=== PATIENT | female | born 1985 | race Caucasian/White ===

== ENCOUNTER → 2017-07-29 16:38 | Outpatient (CLI) | payer BC, SELFPAY ==
[2017-07-29 17:53] LABS: Absolute Lymphocyte Count 1.83 X10^3/ul (0.83-4.51); Absolute Neutrophil Count 3.3 X10^3/uL (2.0-7.7); Basophil# 0.04 X10^3/uL; Basophil% 0.7 % (0-1); Eosinophils% 1.7 % (0-5); Hematocrit 39.6 % (37-47); Hemoglobin 13.5 g/dl (12.0-15.0); Lymphocyte # 1.83 X10^3/ul (4.0); Lymphocyte % 31.2 % (19-41); Mean Corp Hgb Conc 34.1 g/gl (32-36); Mean Corpuscular Hgb 30.3 pg (27.0-32.0); Mean Platelet Vol. 9.5 fl (6.2-12.0); Monocyte# 0.57 X10^3/uL; Monocyte% 9.7 % (0-10); Neutrophil # 3.31 X10^3/uL (2.7-7.7); Neutrophil % 56.4 % (47-70); Platelet Count 275 K/mm3 (150-450); RBC Distribution Width CV 13.3 % (11.6-14.6); RBC Distribution Width SD 42.7 fl (35.1-43.9); Red Blood Count 4.45 M/mm3 (4.2-5.4); White Blood Count 5.9 K/mm3 (4.4-11.0)
[2017-07-29 17:59] LABS: POSITIVE COUNT NO; POSITIVE DIFFERENTIAL NO; POSITIVE MORPHOLOGY NO
[2017-07-29 18:05] LABS: Erythrocyte Sedimentation Rate 45 mm/hr (0-20)
[2017-07-29 20:34] LABS: Internal QC Validated? YES +Cl - CLEAR BKGD; Monotest Negative (Negative)
== END ==
PROVIDERS: Family Provider Family Medicine; PCP Family Medicine; Visit Provider Family Medicine
DX: J02.9 Acute pharyngitis, unspecified (principal)
CPT/HCPCS: 36415; 85025; 85652; 86308

== ENCOUNTER 2017-07-30 11:59 | Emergency (ER) | payer BC, SELFPAY ==
[2017-07-30 12:00] VITALS: BP 157/100; PULSE 116; RESP 17; TEMP 36.7; O2SAT 95; BMI 58.1
[2017-07-30] MEDS: 0.9% Normal Saline 1,000 ML 1000 ML IV (12:34)
[2017-07-30] MEDS: Ketorolac 30 MG/ML Syringe IV (12:35)
[2017-07-30 12:38] LABS: Absolute Lymphocyte Count 1.67 X10^3/ul (0.83-4.51); Absolute Neutrophil Count 4.7 X10^3/uL (2.0-7.7); Basophil# 0.05 X10^3/uL; Basophil% 0.7 % (0-1); Eosinophil# 0.08 X10^3/uL; Eosinophils% 1.2 % (0-5); Hematocrit 40.8 % (37-47); Lymphocyte # 1.67 X10^3/ul (4.0); Lymphocyte % 24.3 % (19-41); Mean Corp Hgb Conc 34.3 g/gl (32-36); Mean Corpuscular Hgb 30.4 pg (27.0-32.0); Mean Corpuscular Volume 88.7 fL (81-99); Monocyte# 0.33 X10^3/uL; Monocyte% 4.8 % (0-10); Neutrophil # 4.73 X10^3/uL (2.7-7.7); Neutrophil % 68.7 % (47-70); Platelet Count 273 K/mm3 (150-450); RBC Distribution Width CV 13.2 % (11.6-14.6); RBC Distribution Width SD 41.7 fl (35.1-43.9); White Blood Count 6.9 K/mm3 (4.4-11.0)
[2017-07-30 12:39] LABS: POSITIVE COUNT NO; POSITIVE DIFFERENTIAL NO; POSITIVE MORPHOLOGY NO
[2017-07-30 12:49] LABS: Anion Gap 11 (5-15); BUN 8 mg/dL (7-18); BUN/Creat Ratio 10.2 RATIO (10-20); Calcium,Total 8.8 mg/dL (8.5-10.1); Chloride 108 mmol/L (98-107); Creatinine, Serum 0.78 mg/dL (0.55-1.02); EST Glomerular Filtration Rate 92 mL/min (>60); Est Glom Filt Rate - Afr Amer 111 mL/min (>60); Estimated Creatinine Clearance 88.03 ml/min; Glucose 128 mg/dL (70-110); Potassium 3.6 mmol/L (3.5-5.1); Sodium Level 141 mmol/L (136-145)
--- NOTE | 2017-07-30 13:32 | ED.VISSUMM ---
- ER Visit Summary Date of Service: 07/30/17 Chief Complaint: [Sore throat and rash] History of Present Illness: The patient is a 31 F [presents the emergency department chief complaint sore throat ?3 days. Patient was initially seen by Dr. Ryan Damon in the office 3 days ago and had a negative strep screen but was started on amoxicillin. Patient subsequently developed a rash she was then seen by Dr. Betancourt in the office yesterday who did some blood work and check a Monospot which was negative and her blood work apparently looked normal however she was continued on the antibiotic.] Patient continues to complain of a sore throat and a burning itchy rash that is diffuse. Patient denies inability to swallow her own secretions. She denies any shortness of breath. She denies any fever. Physical Examination: [HEENT-PERRLA, EOMI. Cranial nerves II through XII grossly intact. TMs clear. Mucous membranes moist. No adenopathy. Patient has pharyngeal erythema without exudates. Uvula in the midline without trismus. Patient does have some anterior and posterior cervical lymphadenopathy noted. Cardiovascular-regular rate and rhythm without murmur or ectopy Lungs-clear to auscultation, chest wall stable without crepitus or subcu emphysema Abdomen-normoactive bowel sounds, soft, nontender, no rebound or rigidity, no peritoneal signs. Skin exam-patient has a diffuse erythematous rash that blanches. Rash looks typical for a drug eruption rash. Extremities-intact ?4, normal range of motion, normal pulses, atraumatic] Test Results: CBC with differential obtained was normal. Chemistries were normal.] Throat culture was sent. Emergency Department Course and Treatment: [Patient was given a liter normal same fluid bolus as well as Toradol 30 mg IV and Decadron 10 mg IV.] Treatment Plan: [At this point I suspect a viral pharyngitis with drug eruption rash related to the amoxicillin. I recommended discontinuing the amoxicillin. Patient will be given a prescription for prednisone for 3 days. Patient to follow-up with her primary care physician within next 3-5 days to follow-up on culture results from the throat. I suspect mono was still in the differential and patient understands that the Monospot may not turn positive for several weeks.] Disposition: [Discharged to home in stable condition] Impression: [Viral pharyngitis Drug eruption rash] This note was generated with [employer] dictation software. It may contain incorrect words, spelling, and punctuation that were not noted in review of the chart prior to signing ED Disposition - Plan for ED Patient: Chief Complaint: Rash Referrals: Inessa Betancourt MD [Primary Care Provider] -
--- NOTE | 2017-07-30 13:36 | ED.DEP ---
ED Disposition - Plan for ED Patient: Chief Complaint: Rash Instructions: ED Pharyngitis Viral Report Pending, ED Allergic Reaction Drug Ch Prescriptions: Prednisone [Deltasone] 20 mg PO BID #6 tab Referrals: Inessa Betancourt MD [Primary Care Provider] - 3-5 Days
[2017-07-30 13:46] VITALS: BP 148/97; PULSE 100; RESP 16; O2SAT 98
== END 2017-07-30 13:47 | disposition home or self-care (01) ==
LOC: ED 12:23
PROVIDERS: Emergency Provider Emergency Medicine; Family Provider Family Medicine; PCP Family Medicine
DX: J02.9 Acute pharyngitis, unspecified (principal); L27.1 Localized skin eruption due to drugs and medicaments taken internally; T36.0X5A Adverse effect of penicillins, initial encounter; Y92.009 Unspecified place in unspecified non-institutional (private) residence as the place of occurrence of the external cause
CPT/HCPCS: 80048; 85025; 87070; 96361; 96374; 96375; 99283; J7030; A4216

== ENCOUNTER → 2017-08-02 12:31 | Outpatient (CLI) | payer BC, SELFPAY ==
--- NOTE | 2017-08-02 13:00 | MRI_ITS ---
STUDY: MRI LEFT REARFOOT WITHOUT CONTRAST REASON FOR EXAM: Pain, swelling, fallen arch, symptoms for 5 years. TECHNIQUE: Standardized fat and water weighted pulse sequences were obtained in all 3 orthogonal planes. COMPARISON: MRI images 05/13/2015. FINDINGS: There is mild edema in the subcutis adipose space of the distal lower leg. Normal posterior tibialis tendon. Normal flexor digitorum longus tendon. Normal flexor hallucis longus tendon. Normal peroneus longus and brevis tendons. Normal tibialis anterior tendon. Normal extensor hallucis longus tendon. Normal extensor digitorum longus tendons. Normal Achilles tendon and teno-osseous insertion. Normal plantar fascia. Normal plantar calcaneal tubercles. There is mild atrophy with mild partial fat replacement of the abductor digiti minimi muscle (T1 sagittal image 17). Normal distal tibiofibular syndesmotic ligamentous complex. There is a mild chronic sprain of the anterior talofibular ligament (T2 axial image 20). Normal calcaneofibular and posterior talofibular ligaments. There is fat replacement of the sinus tarsi (T1 sagittal images 15-18) as on the prior study suggestive of sinus tarsi syndrome. There is cystic change of the adjacent talus and cystic change/bone edema of the adjacent calcaneus, increased since the prior study. Normal deltoid ligamentous complexes. Normal plantar calcaneonavicular (spring) ligament. Normal tibiotalar articulation. Normal talar dome. There is mild arthrosis of the posterior subtalar articulation with mild chondral thinning/irregularity (inversion recovery sagittal images 12-14) and a small subchondral cyst in the posterior aspect of the talus. There is arthrosis of the talonavicular articulation with small dorsal osteophytes and chondral thinning (T1 sagittal image 14) as on the prior study. Normal calcaneocuboid articulation. Normal navicular-cuneiform articulations. There is an os trigonum with mild bone edema adjacent to the synchondrosis (inversion recovery sagittal image 15) as on the prior study. 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 Mild chronic sprain of the anterior talofibular ligament. Mild atrophy of the abductor digiti minimi muscle. Os trigonum with mild bone edema adjacent to the synchondrosis. Electronically Signed: Rey Christine MD at 10:05 EST Tel , Service support ,
== END ==
PROVIDERS: Family Provider Family Medicine; PCP Family Medicine; Visit Provider Podiatrist
DX: M19.072 Primary osteoarthritis, left ankle and foot (principal)
CPT/HCPCS: 73721

== ENCOUNTER → 2017-08-30 10:49 | Outpatient (CLI) | payer BC, SELFPAY ==
[2017-08-30 12:50] LABS: Absolute Lymphocyte Count 2.11 X10^3/ul (0.83-4.51); Absolute Neutrophil Count 4.9 X10^3/uL (2.0-7.7); Basophil# 0.04 X10^3/uL; Basophil% 0.5 % (0-1); Eosinophil# 0.27 X10^3/uL; Eosinophils% 3.4 % (0-5); Hematocrit 37.3 % (37-47); Hemoglobin 12.8 g/dl (12.0-15.0); Lymphocyte # 2.11 X10^3/ul (4.0); Lymphocyte % 26.8 % (19-41); Mean Corp Hgb Conc 34.3 g/gl (32-36); Mean Corpuscular Hgb 30.6 pg (27.0-32.0); Mean Corpuscular Volume 89.2 fL (81-99); Mean Platelet Vol. 9.2 fl (6.2-12.0); Monocyte% 6.4 % (0-10); Neutrophil % 62.3 % (47-70); Platelet Count 297 K/mm3 (150-450); RBC Distribution Width CV 13.4 % (11.6-14.6); RBC Distribution Width SD 42.8 fl (35.1-43.9); Red Blood Count 4.18 M/mm3 (4.2-5.4); White Blood Count 7.9 K/mm3 (4.4-11.0)
[2017-08-30 13:01] LABS: POSITIVE COUNT NO; POSITIVE DIFFERENTIAL NO; POSITIVE MORPHOLOGY NO
[2017-08-30 13:15] LABS: ALB/GLOB Ratio 0.7 RATIO (0.9-2.4); AST(SGOT) 17 U/L (15-37); Alanine Aminotransfer ALT/SGPT 30 U/L (13-56); Alkaline Phosphatase 137 U/L (45-117); Anion Gap 9 (5-15); BUN 9 mg/dL (7-18); BUN/Creat Ratio 13.8 RATIO (10-20); Calcium,Total 8.6 mg/dL (8.5-10.1); Chloride 106 mmol/L (98-107); Creatinine, Serum 0.65 mg/dL (0.55-1.02); EST Glomerular Filtration Rate 114 mL/min (>60); Est Glom Filt Rate - Afr Amer 138 mL/min (>60); Globulin 4.3 g/dL (2.2-4.2); Glucose 72 mg/dL (74-106); Potassium 3.3 mmol/L (3.5-5.1); Protein, Total 7.3 g/dL (6.4-8.2); Sodium Level 140 mmol/L (136-145)
== END ==
PROVIDERS: Family Provider Family Medicine; PCP Family Medicine; Visit Provider Family Medicine
DX: Z01.818 Encounter for other preprocedural examination (principal)
CPT/HCPCS: 36415; 80053; 85025

== ENCOUNTER 2017-09-06 08:18 | Observation (INO) | payer BC, SELFPAY ==
[2017-09-05] VITALS (11 sets, daily range): BP systolic 140–156; BP diastolic 86–111; PULSE 89–111; RESP 16–20; TEMP 35.8–36.6; O2SAT 92–100; BMI 57.9; BMI 58.8
[2017-09-05 11:53] LABS: Internal QC Validated? YES +Cl - CLEAR BKGD
[2017-09-05 11:54] LABS: Pregnancy, Urine Negative Negative
--- NOTE | 2017-09-05 13:00 | RAD_ITS ---
STUDY: X-RAY - LEFT FOOT CLINICAL: Female, 31 years old. Left subtalar joint arthrodesis. TECHNIQUE: 12 coned-down view(s) of the foot were obtained intraoperatively. COMPARISON: None. FINDINGS: Intraoperative imaging demonstrates arthrodesis of the subtalar joints as well as the talonavicular and first metatarsal cuneiform joint. RAD/Foot min 3 Views IMPRESSION: Intraoperative imaging provided for arthrodesis of the foot as described. Electronically Signed: Osmany Uriostegui MD at 15:51 EST Tel [phone], Service support ,
--- NOTE | 2017-09-05 13:00 | BON_PTH ---
PATIENT: GIL DEGROOT LOC: MS2 U#:[id number] AGE/SX: 31/F [place] [facility] [place]09/06/[address]: Dr. Harvinder Monroy DPM : 1985 BED: 1 DIS: 09/08/2017 SPEC #: [id number] RECD: 09/06/17 08:38 STATUS: BETHANY RUPERT #: [id number] ARABELLA: 09/05/17 13:[address]: Harvinder Monroy DEPT: SURGICAL PATHOLOGY RECD BY: Timo Glez ENTERED: 09/06/17 11:32 SP TYPE: Bone OTHR DR: Dr. Inessa Betancourt MD Tissues: Left foot Procedures: Decalcification bone/plaque Surgery Specimen Level IV HEADER OPERATION: Subtalar joint arthrodesis, talonavicular joint arthrodesis PRE-OP DIAGNOSIS: Left foot osteoarthritis, flatfoot TISSUE SUBMITTED: Left foot ? accessory bone, subtalar joint, talonavicular joint, first metatarsal cuneiform joint MICROSCOPIC DIAGNOSIS Accessory bone, left foot, excision: Bone with reactive and reparative change. Cartilaginous tissue with no significant pathologic change. Fibrofatty tissue with no pathologic change. MERRILL:floyd 09/09/17 COMMENT There is no evidence of osteomyelitis. Clinical correlation is suggested. MICROSCOPIC DESCRIPTION Slides are reviewed. GROSS DESCRIPTION Received in fixative is one container labeled with the patient's name and designated accessory bone, subtalar joint, talonavicular joint, first metatarsal cuneiform joint. The specimen consists of multiple pieces of bone mixed with soft tissue that in aggregate measure 3 x 1.5 x 0.3 cm. The entire specimen is submitted in one cassette after decalcification. / COLLEEN:floyd 09/06/17 TC:5 CPT: 70494, 21821
[2017-09-05] MEDS: Cefazolin 2 GM in 0.9% Normal Saline 100 ML IV (13:52)
[2017-09-05] MEDS: Heparin 10,000 UNITS/10 ML Vial 10000 UNITS (13:52)
[2017-09-05] MEDS: Bupivacaine Mpf 0.5% 30 ML VIAL (18:52)
--- NOTE | 2017-09-05 19:35 | RAD_ITS ---
STUDY: X-RAY - LEFT ANKLE REASON FOR EXAM: Female, 31 years old. TECHNIQUE: 3 view(s) of the ankle. COMPARISON: None. FINDINGS: There is demonstrated cancellous screws within the talonavicular and first metatarsal cuneiform region showing arthrodesis. No evidence of hardware failure. Cortical screws within the calcaneus are noted with normal alignment. No evidence of large fluid collection. Normal visualized distal tibia and fibula. Normal medial and lateral malleoli. Normal tibiotalar articulation and ankle mortise. The soft tissue structures are unremarkable. RAD/Ankle min 3 Views IMPRESSION: Demonstrated hardware with no evidence of hardware failure with tibial navicular, subtalar, and first metatarsal cuneiform coalition. Electronically Signed: Michael Martínez DO at 22:10 EST , Service support ,
--- NOTE | 2017-09-05 19:38 | RAD_ITS ---
STUDY: X-RAY - LEFT CALCANEUS REASON FOR EXAM: Female, 31 years old. Postop left tibial navicular arthrodesis, subtalar arthrodesis and first metatarsal cuneiform arthrodesis. TECHNIQUE: 2 view(s) of the calcaneus were obtained. COMPARISON: None. FINDINGS: There is demonstrated cancellous screws within the talonavicular and first metatarsal cuneiform region showing arthrodesis. No evidence of hardware failure. Cortical screws within the calcaneus are noted with normal alignment. No evidence of large fluid collection. RAD/Calcaneus min 2 Views IMPRESSION: Demonstrated hardware with no evidence of hardware failure with tibial navicular, subtalar, and first metatarsal cuneiform coalition. Electronically Signed: Michael Martínez DO at 22:02 EST , Service support ,
--- NOTE | 2017-09-05 19:38 | RAD_ITS ---
STUDY: X-RAY - LEFT FOOT CLINICAL: Female, 31 years old. Postop. TECHNIQUE: 3 view(s) of the foot. COMPARISON: None. FINDINGS: There is demonstrated cancellous screws within the talonavicular and first metatarsal cuneiform region showing arthrodesis. No evidence of hardware failure. Cortical screws within the calcaneus are noted with normal alignment. No evidence of large fluid collection. Normal metatarsophalangeal joint of the great toe. Normal tibial and fibular sesamoid bones. Normal interphalangeal joint of the great toe. Normal phalanges of the great toe. Normal second through fifth metatarsophalangeal joints. Normal interphalangeal joints and phalanges of the lesser toes. The soft tissue structures are unremarkable. RAD/Foot min 3 Views IMPRESSION: Demonstrated hardware with no evidence of hardware failure with tibial navicular, subtalar, and first metatarsal cuneiform coalition. Electronically Signed: Michael Martínez DO at 22:03 EST , Service support ,
--- NOTE | 2017-09-05 20:05 | PCM.OPRPT ---
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 Description of Surgical Findings:: Degenerative changes of the subtalar joint and talonavicular joint, left foot network and threat support specialist: Yes - Dr. Blanca Roman Type of Anesthesia:: General Anesthesiologist: Gurdeep Schultz Specimen's removed: Bone from left subtalar joint, talonavicular joint, 1st metatarsal cuneiform joint and excised os trigonum all sent to patholgy. Estimated Blood Loss (mL): 100mL Description of Procedure: Indications: This is a 31 year old female with history of significant chronic left foot pain secondary significant flatfoot deformity with dorsiflexed 1st ray, degenerative changes of the subtalar and talonavicular joints, as well as gastrocsoleus equinus and painful os trigonum. She has tried extensive nonsurgical care over the past several years, this has included changes in shoegear, activity modifications, rest, anti-inflammatories, corticosteroid injections, foot orthotics, AFO bracing, and immobilization but symptoms persist and are resulting in significant inactivity. She relates to significant foot pain every day, very painful at work, and and hard to get through the day. She relates it is so painful, she does not want to put weight on the foot, she relates it worsens throughout the day, and by the end of the day she does not want to even get up her foot is so painful. She relates the symptoms are worsening. Pre operative examination, which included foot/ankle/calcaneal axial xrays, as well as MRI showed degenerative changes of the subtalar joint and talonavicular joint. There was noted to be significant pes planus, decreased medial longitudinal arch, over pronation of the hindfoot all consistent with dysfunction of the posterior tibial tendon. However the posterior tibial tendon did appear to be intact without significant tearing or degenerative changes on MRI. She also had a rigid dorsiflexed 1st ray present. as well as gastrocsoleus equinus pre operatively. She had pain localized to the hindfoot, specially to the subtalar joint, sinus tarsi, and talonavicular joints. There was also noted to be a large painful os trigonum present. Given the continued symptoms despite extensive nonsurgical management she elected to under go surgical intervention - subtalar, talonavicular, and 1st metatarsal cuneiform joint (plantarflexory) arthrodesis with bone grafting (allograft), gastrocsoleus recession, and excision of os trigonum. This was discussed with her in great detail, reviewed the procedures, as well as the rationale of the procedures with her in great detail. We discussed and reviewed the possible benefits vs risks/potential complications. The estimated healing/recovery time and protocol were reviewed with her in detail. Reviewed the goals and the expectations. She expressed understanding and agreement and elected to proceed forward with surgical intervention as noted above. The consent forms were reviewed with her and she freely signed them. All of her questions were answered. No guarantees were given or implied. Operative Procedure: The patient was brought back into the operating room and was placed on the operating table in the supine position. Patient was carefully secured to the operating room table with a safety belt around her waist. A time out was performed and the patient was properly identified and the surgical plan was confirmed. The patient received 2 grams of intervenous Cefazolin for antibiotic prophylaxis. The patient received general anesthesia per the anesthesiologist. A well padded pneumatic tourniquet was applied around her left thigh. The left lower extremity was scrubbed, prepped, and draped in the usual aseptic fashion. Attention was directed to the left foot, there was noted to be significant pes planus present with gastrocsoleus equinus present. There is 0 degrees dorsiflexion with knee extended and less than 10 degrees with knee flexed. A Jamshidi needle was placed through the lateral wall of the calcaneus being use to avoid all vital structures to the area. 45mL of bone marrow aspirate was able to be obtained, this was spun down to 4mL of concentrated bone marrow aspirate to be placed later at the arthrodesis sites to aid fusion. The left foot was elevated for 3 minutes and the left thigh pneumatic tourniquet was inflated to 325mmHg. Attention was directed just distal to the medial head of the gastrocnemius muscle belly on the posterior leg. A 1cm linear skin incision was made using a 15 blade at this level at the medial aspect. Careful dissection was completed down to the gastrocsoleus aponeurosis. A fascial elevator was used and a plane was made between the subcutaneous tissue and the posterior aspect of the gastrocsoleus aponeurosis. A 1cm linear skin incision was made using a 15 blade at the lateral aspect of the leg to create the lateral portal. The fascial elevator was removed, and an obturator and slotted cannula were placed through the medial and lateral portals. The obturator was removed and the slotted cannula was faced posteriorly; the sural nerve and the small saphenous vein was visualized confirming they were out of the way. The slotted cannula was rotated to face anteriorly and the gastrocsoleus aponeurosis was visualized. Using a hook blade the gastrocsoleus aponeurosis was released. There was now noted to be +10 degrees of ankle dorsiflexion with knee flexed and extended. The obturator was placed in the cannula, and they were both removed. The site was flushed out with copious amounts of normal saline solution. The skin was reapproximated using 3-0 nylon. Attention was directed to the lateral hindfoot were an incision was made from the distal fibular directed toward the 4th metatarsal base. This was done using a 15 blade. Careful dissection was completed down to the extensor digitorum brevis muscle belly, and it was visualized. The extensor digitorum muscle belly was partially reflected to expose to the sinus tarsi. Careful dissection was completed to the posterior subtalar joint, where the lateral capsule and the interosseous ligaments were released. The subtalar joint surfaces were visualized. There were noted to be osteoarthritis degenerative changes present to the subtalar joint surfaces. The cartilage was worn away. The cartilage from the subtalar joint surfaces was debrided and removed down to bleeding bone. This was done with a curette and a bone bur being sure not to cause osteonecrosis. The site was flushed out with copious amounts of normal saline solution. The surfaces were fenestrated using a small drill, as well as using a small osteotome, to aid fusion. Attention was directed to the medial hindfoot foot, where a skin incision was medially along the medial talonavicular joint and posterior tibial tendon. This was done using a 15 blade. Careful dissection was completed down to the posterior tibial tendon sheath which was incised, the posterior tibial tendon was visualized and was noted to be healthy and viable. The tendon was intact, healthy and viable, with no significant tear or degeneration present, therefore it was left alone, no repair was necessary. The capsule of the talonavicular joint was incised using a 15 blade and partially reflected exposing the talonavicular joint surfaces. The joint was visualized, there were osteoarthritis degenerative changes present to the talonavicular joint surfaces. The cartilage was worn away. All cartilage from the talar head and posterior navicular surface debrided away and was removed down to bleeding bone. This was done with a curette and a bone spur being sure not to cause osteonecrosis. The site was flushed out with copious amounts of normal saline solution. The surfaces were fenestrated using a small drill, as well as using a small osteotome, to aid fusion. Attention was directed to the posterior lateral aspect of the ankle, posterior to the os trigonum, and lateral to the Achilles tendon. At this level, a longitudinal skin incision was made using a 15 blade. Careful dissection was completed down to the os trigonum. The os trigonum was visualized, and it was freed up. The os trigonum was excised, and was sent to pathology. Complete excision was confirmed using intra operative fluoroscopy. The site was flushed out with copious amounts of normal saline solution. The subcutaneous tissue layer was re-approximated using 3-0 Vicryl, and the skin was reapproximated using 3-0 Nylon. Attention was directed to the 1st ray, there was a rigid dorsiflexion deformity present of the 1st ray. A skin incision was medially along the medial 1st metatarsal cuneiform joint. This was done using a 15 blade. Careful dissection was completed down to the capsule of the 1st metatarsal cuneiform joint, and it was incised using a 15 blade and partially reflected exposing the joint surfaces. All cartilage from the joint surfaces (posterior aspect of the base of the 1st metatarsal and the anterior aspect of the medial cuneiform) were debrided away and was removed down to bleeding bone. This was done with a powered sagittal saw, curette, and a bone spur being sure not to cause osteonecrosis. The site was flushed out with copious amounts of normal saline solution. The surfaces were fenestrated to aid fusion using a small drill, as well as a small osteotome. The 1st metatarsal head was plantarflexed into normal position, and a tricortical iliac bone allograft was shaped and modeled into a wedge and placed into the fusion site (base of the cortex wedge dorsal, and apex plantar) to hold the correction. The wedge fit nicely into the arthrodesis site with good bone to bone contact and reduction of the deformity was noted. The site was fixated use rigid open reduction internal fixation, using 1 Arthrex plantar plate, using a total of 2 locking screws, 3 nonlocking screws - once of which was providing compression across the graft and arthrodesis site. The subtalar and talonavicular joints were placed in neutral position position; reducing the deformity, the heel was now in slight valgus to vertical position. The subtalar and talonavicular joint arthrodesis sites were fixated using rigid open reduction internal fixation technique. The prepped surfaces were brought together with good and proper alignment; the talonavicular joint arthrodesis site was fixated using two 4.0 cancellated Arthrex screws. There was good compression and bone to bone contract with the prepped talonavicular joint surfaces in good alignment and good bone to bone contact and compression. Two 6.7mm cannulated Arthrex screws were placed across the prepped subtalar joint starting from the plantar posterior calcaneus. A small skin incision was made to the posterior plantar calcaneus for screw placement with careful dissection completed down to the bone. There was good compression and bone to bone contract with the prepped subtalar joint surfaces in good alignment. The subtalar joint was rigid and stable. The arthrodesis sites were rigid and stable. There was good compression and bone to bone contract and there was good alignment. This was checked and confirmed with intraoperative fluoroscopy. Images were saved and placed in patient's chart. The hindfoot and medial column were stable and in good position with good fixation, the foot was plantigrade and there was oriental orthodox of the medical longitudinal arch with good re-alignment of the foot noted, there was good bone to bone contract and all hardware in place with no complications. The ankle was dorsiflexed and it was noted to be +10 degrees of ankle dorsiflexion with knee extended, and > 10 degrees with knee flexed. The surgical sites were flushed out with copious amounts of normal saline solution. The arthrodesis sites (talonavicular, subtalar, and 1st metatarsal cuneiform) were also packed with a total of 10mL of Arthrex bone allograft mixed with the bone marrow concentrate to aid fusion prior to closure. The subcutaneous tissue layers were reapproximated using 2-0 and 3-0 Vicryl and the skin was reapproximated using 3-0 Nylon. The pneumatic tourniquet was deflated at 120 minutes within in operative procedure, there was immediate return of warmth and perfusion to the foot and to all toes on the foot with normal temperature gradient and CFT < 2 seconds to all toes once the tourniquet was deflated, and remained this way for the rest of the case. Hemostasis was achieved proper to wound closure of the surgical sites. A dressing was applied which consisted of betadine soaked adaptic, 4x4 gauze, kerlix, webril, and simran bandage and a well padded below the knee posterior splint secured with simran bandages and with the heel offloaded. Of note, all vital structures including all vital neurovascular and tendon structures were properly identified, protected, and retracted as necessary throughout the above operative procedures. The patient tolerated the above operative procedures well at the anesthesia well with no complication. The patient was transported from the operating room to the recovery room with vital signs stable and in good condition. Post operative orders were placed, and patient will be admitted for post op pain control and observation, I did speak with Dr. Murphy from the medicine team, who agreed with the admission. No weightbearing left foot, keep left foot elevated for at least 50 minutes of every hour, keep dressing and splint clean, dry and intact. The patient was given a lower extremity popliteal and saphenous block per anesthesia service in the post operative recovery area. Post operative xrays were obtained in the recovery room (DP, Oblique, and lateral foot; AP, Mortise, and Lateral ankle, and calcaneal axial views) - there was again noted to be subtalar, talonavicular and 1st metatarsal cuneiform arthrodesis with joint surfaces in good alignment and good bone to bone contract with intact hardware; bone graft intact at the 1st metatarsal cuneiform arthrodesis site, alignment was good, oriental orthodox of the medial column and good re-alignment of the foot noted, os trigonum has been excised; no acute problems or complications seen. Grafts/Implants Used: Arthrex screws, Arthrex plantar plate, bone allograft - Complications None - Admit VTE Documentation VTE Pharm Prophylaxis ordered?: Yes
--- NOTE | 2017-09-05 21:39 | PCM.HP.STD ---
Problem List (1) History of foot surgery Status: Acute History of Present Illness Date of Admission: 09/05/17 Chief Complaint: left foot surgery The patient is a 31 year old female with a history of morbid obesity presents to the floor post operatively. She had surgery for her flat foot condition that has plagued her for a long time. She has exhausted conservative therapies and has been inactive as a result of her foot pain. The patient has a 16month old daughter and is motivated to be more active with her. No chest pain or shortness of breath. Pain currently 8/10 status post nerve block. She will be admitted overnight for observation and pain management. Past Medical History Allergies No Known Allergies Allergy (Verified 08/30/17 15:28) Home Medications: Ambulatory Orders Medication Instructions Recorded Ethinyl Estradiol/Drospirenone 1 each PO DAILY 07/30/17 [Kasey 28 Tablet] Smoking Status: Never smoker - *Family History Maternal History Items: No pertinent history Review of Systems Constitutional: Denies: Chills, Fever, Weight Change HEENT: Denies: Head Aches, Sinus Congestion, Sinus Drainage Cardiovascular: Denies: Chest Pain, Palpitations Respiratory: Denies: Cough, Shortness of breath at rest, Sputum production Gastrointestinal: Denies: Abdominal Pain, Nausea, Vomiting Genitourinary: Denies: Dysuria Musculoskeletal: Reports: Foot Pain. Denies: Joint Pain, Joint Tenderness Skin: Denies: Rash, Wounds Neurological: Denies: Numbness, Tingling, Focal weakness Psychiatric: Denies: Anxiety, Depression, Homicidal Ideations, Suicidal Ideations Hematologic/ Lymphatic: Denies: Easy Bruising, Easy Bleeding VTE Information - Inpt Only VTE Present on Admission: No VTE Mechan Device Prophylaxis: None VTE Pharm Prophylaxis ordered?: Yes Patient Problems: Active and Suspected Problems History of foot surgery (Acute) - Physical Exam General: Alert, Oriented x3, Cooperative HEENT: Atraumatic, Normocephalic Neck: Supple Lungs: Clear to auscultation, Normal air movement Cardiovascular: Regular rate, No murmurs Abdomen: Bowel Sounds Present, Soft, Non Tender, Obese Extremities: Tenderness - left extremity wrapped post op Skin: No rashes, No breakdown Musculoskeletal: No Tenderness to Palpation of Joints or Extremities Neurological: Neuro grossly intact Psych/Mental Status: Normal Affect, Appropriate Vital Signs Temp Pulse Resp BP Pulse Ox 97.7 F L 97 18 140/86 H 98 09/05/17 21:07 09/05/17 21:07 09/05/17 21:07 09/05/17 21:07 09/05/17 21:07 Oxygen Flow Rate (L/min) 2 Oxygen Delivery Method Nasal Cannula Weight: 332 lb Body Mass Index (BMI) 58.8 Intake and Output for Last 24 Hours 09/03/17 09/04/17 09/05/17 23:59 23:59 23:59 Intake Total 3100 / 3100 Balance 3100 / 3100 Laboratory Tests Past 24 Hrs 09/05/17 11:45 Urine Test Negative Assessment/Plan Active and Suspected Problems History of foot surgery (Acute) Plan - admit to general medical floor - pain medications including prn Dilaudid ordered. - plan dc in am - Dr Monroy to follow
[2017-09-05] MEDS: HYDROmorphone 1 MG/ML Syringe IV (21:57)
[2017-09-05] MEDS: Cefazolin 1 GM/50 ML BAG IV (21:57)
[2017-09-05] MEDS: oxyCODONE 5 MG Tablet 10 MG PO (23:27)
--- NOTE | 2017-09-05 23:39 | CPS ---
pt has own cpap machine in room-distilled water added.
[2017-09-06 01:15] VITALS: BP 158/101; PULSE 104; RESP 16; TEMP 36.6; O2SAT 95
[2017-09-06] MEDS: 0.9% NaCl Peripheral Flush Adult/Peds IV ×2 (02:13→20:54)
[2017-09-06] MEDS: HYDROmorphone 1 MG/ML Syringe IV ×7 (02:13→20:23)
[2017-09-06 06:00] LABS: Absolute Lymphocyte Count 1.45 X10^3/ul (0.83-4.51); Absolute Neutrophil Count 8.6 X10^3/uL (2.0-7.7); Basophil# 0.01 X10^3/uL; Basophil% 0.1 % (0-1); Hematocrit 34.4 % (37-47); Hemoglobin 11.6 g/dl (12.0-15.0); Lymphocyte # 1.45 X10^3/ul (4.0); Lymphocyte % 13.6 % (19-41); Mean Corp Hgb Conc 33.7 g/gl (32-36); Mean Corpuscular Hgb 30.5 pg (27.0-32.0); Mean Corpuscular Volume 90.5 fL (81-99); Mean Platelet Vol. 9.2 fl (6.2-12.0); Monocyte% 4.7 % (0-10); Neutrophil # 8.63 X10^3/uL (2.7-7.7); Neutrophil % 81.2 % (47-70); Platelet Count 326 K/mm3 (150-450); RBC Distribution Width CV 13.6 % (11.6-14.6); RBC Distribution Width SD 43.8 fl (35.1-43.9); White Blood Count 10.6 K/mm3 (4.4-11.0)
[2017-09-06 06:07] LABS: POSITIVE COUNT NO; POSITIVE DIFFERENTIAL NO; POSITIVE MORPHOLOGY NO
[2017-09-06 06:11] LABS: Anion Gap 10 (5-15); BUN 7 mg/dL (7-18); BUN/Creat Ratio 9.3 RATIO (10-20); Calcium,Total 8.5 mg/dL (8.5-10.1); Chloride 105 mmol/L (98-107); Creatinine, Serum 0.76 mg/dL (0.55-1.02); EST Glomerular Filtration Rate 96 mL/min (>60); Est Glom Filt Rate - Afr Amer 116 mL/min (>60); Estimated Creatinine Clearance 90.35 ml/min; Glucose 138 mg/dL (74-106); Potassium 4.1 mmol/L (3.5-5.1); Sodium Level 140 mmol/L (136-145)
[2017-09-06 06:13] VITALS: BP 119/70; PULSE 90; RESP 18; TEMP 36.8; O2SAT 97
[2017-09-06] MEDS: Enoxaparin 40 MG/0.4 ML Syringe SC (06:16)
[2017-09-06] MEDS: Cefazolin 1 GM/50 ML BAG IV ×2 (06:16→12:40)
--- NOTE | 2017-09-06 07:51 | PCM.PN.HOSP ---
Patient Problems: Active and Suspected Problems History of foot surgery (Acute) Subjective: Follow-up on post left ankle surgery. Patient seen and examined. No acute events overnight. Reviewed vitals- stable, no fever or tachycardia. Labs reviewed- stable. Vitals/I&O's: Vital Signs Temp Pulse Resp BP Pulse Ox 98.3 F 90 18 119/70 97 09/06/17 06:13 09/06/17 06:13 09/06/17 06:13 09/06/17 06:13 09/06/17 06:13 Oxygen Flow Rate (L/min) 2 Oxygen Delivery Method Room Air Weight: 150.593 kg Body Mass Index (BMI) 58.8 Intake and Output for Last 24 Hours 09/04/17 09/05/17 09/06/17 23:59 23:59 23:59 Intake Total 3377 / 3377 385 / 385 Output Total 325 / 325 825 / 825 Balance 3052 / 3052 -440 / -440 General: Alert, Oriented x3, Cooperative HEENT: Atraumatic, PERRLA, EOMI, Normocephalic Neck: Supple, No JVD, Negative Carotid Bruits Lungs: Clear to auscultation, Normal air movement Cardiovascular: Regular rate, No murmurs Abdomen: Bowel Sounds Present, Soft, Non Tender Extremities: No edema, Capillary Refill Less than 3 Seconds Skin: No rashes, No breakdown Musculoskeletal: No Tenderness to Palpation of Joints or Extremities Neurological: Cranial nerves II-XII grossly intact Psych/Mental Status: Normal Affect, Appropriate Laboratory Results 09/05/17 11:45: Urine Test Negative 09/06/17 05:25: WBC 10.6, RBC 3.80 L, Hgb 11.6 L, Hct 34.4 L, MCV 90.5, MCH 30.5, MCHC 33.7, RDW 13.6, RDW Differential 43.8, Plt Count 326, MPV 9.2, Immature Gran % (Auto) 0.400, Neut % (Auto) 81.2 H, Lymph % (Auto) 13.6 L, [place] % (Auto) 4.7, Eos % (Auto) 0.0, Baso % (Auto) 0.1, Absolute Neuts (auto) 8.6 H, Absolute Lymphs (auto) 1.45, Total Counted Not Reportable 09/06/17 05:25: Sodium 140, Potassium 4.1, Chloride 105, Carbon Dioxide 25.0, Anion Gap 10, BUN 7, Creatinine 0.76, Estim Creat Clear Calc 90.35, Est GFR (MDRD) Af Amer 116, Est GFR (MDRD) Non-Af 96, BUN/Creatinine Ratio 9.3 L, Glucose 138 H, Calcium 8.5 Current Medications Acetaminophen (Tylenol) 650 mg PO Q4H PRN PRN PRN Reason: PAIN Enoxaparin Sodium (Lovenox) 40 mg SC DAILY@0600 [facility] Last Admin: 09/06/17 06:16 Dose: 40 mg Ergocalciferol (Vitamin D) 50,000 unit PO Q7D [facility] Hydromorphone HCl (Dilaudid) 1 - 2 mg IV Q4H PRN PRN PRN Reason: SEVERE PAIN (6-10/10) Last Admin: 09/06/17 06:31 Dose: 1 mg Cefazolin Sodium () 1 gm in 50 mls @ 100 mls/hr IV Q8H [facility] Stop: 09/06/17 13:59 Last Admin: 09/06/17 06:16 Dose: 100 mls/hr Oxycodone HCl (Oxyir) 10 mg PO Q4H PRN PRN PRN Reason: SEVERE PAIN (6-10/10) Last Admin: 09/05/17 23:27 Dose: 10 mg Promethazine HCl (Phenergan (Ll)) 12.5 mg IV Q6H PRN PRN PRN Reason: NAUSEA/VOMITING Last Admin: 09/05/17 23:28 Dose: 12.5 mg Sodium Chloride () 5 - 30 ml IV UD PRN PRN Reason: SALINE FLUSH Last Admin: 09/06/17 02:13 Dose: 10 ml Assessment/Plan Active and Suspected Problems History of foot surgery (Acute) 31y/o female with history of asthma, super morbid obesity, flatfoot admitted on 09/05/17 and is status post left foot surgery. 1. POD# 1, s/p left subtalar,talonavicular, 1st metatarsal cuneiform joint arthrodesis; endoscopic gastrocsoleus recession, excision of os trigonum. Pain is fairly controlled. Active wound management by Dr. Monroy. 2. Normocytic normochromic anemia, appears to be a patient's baseline, Hb 11.6 3. Vitamin D deficiency, level on 09/01/2017 was 9, required vitamin D 50,000 units weekly for 8 weeks and then 1000 units daily 4. Asthma, no signs of acute exacerbation, will keep on duoneb prn 5. Super super morbid obesity, weight loss and exercise advised 6. Hyperglycemia, morbid obesity, will check HgbA1c 7. DVT PPx - Lovenox SC Code Visit Inpatient E&M: 02693 Subs Hosp L2
--- NOTE | 2017-09-06 07:57 | PN_ITS ---
Patient Problems: Active and Suspected Problems History of foot surgery (Acute) Subjective: Follow-up on post left ankle surgery. Patient seen and examined. No acute events overnight. Reviewed vitals- stable , no fever or tachycardia. Labs reviewed- stable. Vitals/I&O's: Vital Signs Temp Pulse Resp BP Pulse Ox 98.3 F 90 18 119/70 97 09/06/17 06:13 09/06/17 06:13 09/06/17 06:13 09/06/17 06:13 09/06/17 06:13 Oxygen Flow Rate (L/min) 2 Oxygen Delivery Method Room Air Weight: 150.593 kg Body Mass Index (BMI) 58.8 Intake and Output for Last 24 Hours 09/04/17 09/05/17 09/06/17 23:59 23:59 23:59 Intake Total 3377 / 3377 385 / 385 Output Total 325 / 325 825 / 825 Balance 3052 / 3052 -440 / -440 General: Alert, Oriented x3, Cooperative HEENT: Atraumatic, PERRLA, EOMI, Normocephalic Neck: Supple, No JVD, Negative Carotid Bruits Lungs: Clear to auscultation, Normal air movement Cardiovascular: Regular rate, No murmurs Abdomen: Bowel Sounds Present, Soft, Non Tender Extremities: No edema, Capillary Refill Less than 3 Seconds Skin: No rashes, No breakdown Musculoskeletal: No Tenderness to Palpation of Joints or Extremities Neurological: Cranial nerves II-XII grossly intact Psych/Mental Status: Normal Affect, Appropriate Laboratory Results 09/05/17 11:45: Urine Test Negative 09/06/17 05:25: WBC 10.6, RBC 3.80 L, Hgb 11.6 L, Hct 34.4 L, MCV 90.5, MCH 30.5 , MCHC 33.7, RDW 13.6, RDW Differential 43.8, Plt Count 326, MPV 9.2, Immature Gran % (Auto) 0.400, Neut % (Auto) 81.2 H, Lymph % (Auto) 13.6 L, [place] % (Auto) 4.7, Eos % (Auto) 0.0, Baso % (Auto) 0.1, Absolute Neuts (auto) 8.6 H, Absolute Lymphs (auto) 1.45, Total Counted Not Reportable 09/06/17 05:25: Sodium 140, Potassium 4.1, Chloride 105, Carbon Dioxide 25.0, Anion Gap 10, BUN 7, Creatinine 0.76, Estim Creat Clear Calc 90.35, Est GFR ( MDRD) Af Amer 116, Est GFR (MDRD) Non-Af 96, BUN/Creatinine Ratio 9.3 L, Glucose 138 H, Calcium 8.5 Current Medications Acetaminophen (Tylenol) 650 mg PO Q4H PRN PRN PRN Reason: PAIN Enoxaparin Sodium (Lovenox) 40 mg SC DAILY@0600 [facility] Last Admin: 09/06/17 06:16 Dose: 40 mg Ergocalciferol (Vitamin D) 50,000 unit PO Q7D [facility] Hydromorphone HCl (Dilaudid) 1 - 2 mg IV Q4H PRN PRN PRN Reason: SEVERE PAIN (6-10/10) Last Admin: 09/06/17 06:31 Dose: 1 mg Cefazolin Sodium () 1 gm in 50 mls @ 100 mls/hr IV Q8H [facility] Stop: 09/06/17 13:59 Last Admin: 09/06/17 06:16 Dose: 100 mls/hr Oxycodone HCl (Oxyir) 10 mg PO Q4H PRN PRN PRN Reason: SEVERE PAIN (6-10/10) Last Admin: 09/05/17 23:27 Dose: 10 mg Promethazine HCl (Phenergan (Ll)) 12.5 mg IV Q6H PRN PRN PRN Reason: NAUSEA/VOMITING Last Admin: 09/05/17 23:28 Dose: 12.5 mg Sodium Chloride () 5 - 30 ml IV UD PRN PRN Reason: SALINE FLUSH Last Admin: 09/06/17 02:13 Dose: 10 ml Assessment/Plan Active and Suspected Problems History of foot surgery (Acute) 31y/o female with history of asthma, super morbid obesity, flatfoot admitted on 09/05/17 and is status post left foot surgery. 1. POD# 1, s/p left subtalar,talonavicular, 1st metatarsal cuneiform joint arthrodesis; endoscopic gastrocsoleus recession, excision of os trigonum. Pain is fairly controlled. Active wound management by Dr. Monroy. 2. Normocytic normochromic anemia, appears to be a patient's baseline, Hb 11.6 3. Vitamin D deficiency, level on 09/01/2017 was 9, required vitamin D 50,000 units weekly for 8 weeks and then 1000 units daily 4. Asthma, no signs of acute exacerbation, will keep on duoneb prn 5. Super super morbid obesity, weight loss and exercise advised 6. Hyperglycemia, morbid obesity, will check HgbA1c 7. DVT PPx - Lovenox SC Code Visit Inpatient E&M: 44525 Subs Hosp L2
--- NOTE | 2017-09-06 08:17 | RAD_ITS ---
STUDY: X-RAY - LEFT FOOT CLINICAL: Female, 31 years old. Surgery yesterday. Forgan a pop this morning. Pain. TECHNIQUE: 3 view(s) of the foot through casting material. COMPARISON: September 05, 2017 FINDINGS: Arthrodesis of the subtalar, talonavicular and first tarsometatarsal joints are stable. No complications are noted. No acute pathology is seen. The soft tissue structures are unremarkable. RAD/Foot min 3 Views IMPRESSION: Stable arthrodesis as described. No acute pathology. Electronically Signed: Ismael Centeno MD at 17:13 EST , Service support ,
--- NOTE | 2017-09-06 08:18 | RAD_ITS ---
STUDY: X-RAY - LEFT ANKLE REASON FOR EXAM: Female, 31 years old. Surgery yesterday. Callahan a pop today. Pain. 2 TECHNIQUE: view(s) of the ankle. COMPARISON: September 05, 2017 FINDINGS: Arthrodesis of the subtalar, talonavicular and first tarsometatarsal joints are stable. No complications are noted. No acute pathology is seen. The soft tissue structures are unremarkable. RAD/Ankle 2 Views IMPRESSION: Stable arthrodesis as described. No acute pathology. Electronically Signed: Ismael Centeno MD at 17:13 EST , Service support ,
--- NOTE | 2017-09-06 08:26 | PN_ITS ---
Patient Problems: Active and Suspected Problems History of foot surgery (Acute) Subjective: Patient seen this morning, she is s/p left foot talonavicular, subtalar, and 1st metatarsal cuneiform joint arthrodesis, excision of os trigonum, and endoscopic gastrocsoleus recession. She relates pain medication is helping, she relates she was able to get some sleep last night. She relates she felt a pop in her left foot when she got up to go to the bathroom this morning, she relates she did not have any weight on foot. No fever, chills, nausea, vomiting , shortness of breath, chest pain or calf pain. - Physical Exam General: Alert, Oriented x3, Cooperative, No apparent distress Extremities: Capillary Refill Less than 3 Seconds, No Calf Tenderness, - - Dressing/splint to the left foot/ankle clean, dry and intact, no strikethrough, patient able to wiggle toes however she reports numbness to toes (appears popliteal block still in effect), no calf pain, no suspicion for infection or DVT at this time. Psych/Mental Status: Normal Affect, Appropriate, Alert and oriented to time, place, person, mood and affect Vital Signs Temp Pulse Resp BP Pulse Ox 98.3 F 90 18 119/70 97 09/06/17 06:13 09/06/17 06:13 09/06/17 06:13 09/06/17 06:13 09/06/17 06:13 Oxygen Flow Rate (L/min) 2 Oxygen Delivery Method Room Air Weight: 150.593 kg Body Mass Index (BMI) 58.8 Intake and Output for Last 24 Hours 09/04/17 09/05/17 09/06/17 23:59 23:59 23:59 Intake Total 3377 / 3377 385 / 385 Output Total 325 / 325 825 / 825 Balance 3052 / 3052 -440 / -440 Laboratory Tests Past 24 Hrs 09/05/17 09/06/17 09/06/17 11:45 05:25 05:25 WBC 10.6 RBC 3.80 L Hgb 11.6 L Hct 34.4 L MCV 90.5 MCH 30.5 MCHC 33.7 RDW 13.6 RDW Differential 43.8 Plt Count 326 MPV 9.2 Immature Gran % (Auto) 0.400 Neut % (Auto) 81.2 H Lymph % (Auto) 13.6 L [place] % (Auto) 4.7 Eos % (Auto) 0.0 Baso % (Auto) 0.1 Absolute Neuts (auto) 8.6 H Absolute Lymphs (auto) 1.45 Total Counted Not Reportable Sodium 140 Potassium 4.1 Chloride 105 Carbon Dioxide 25.0 Anion Gap 10 BUN 7 Creatinine 0.76 Estim Creat Clear Calc 90.35 Est GFR (MDRD) Af Amer 116 Est GFR (MDRD) Non-Af 96 BUN/Creatinine Ratio 9.3 L Glucose 138 H Calcium 8.5 Urine Test Negative Assessment/Plan Active and Suspected Problems History of foot surgery (Acute) s/p left foot talonavicular, subtalar, and 1st metatarsal cuneiform joint arthrodesis, excision of os trigonum, and endoscopic gastrocsoleus recession on 09/05/17 Keep dressing/splint left lower extremity clean, dry, intact. No weightbearing left foot. Keep left foot elevated. Ordered new left foot/ankle xrays as patient reports hearing/feeling a pop earlier this morning. Continue with Dilaudid 1-2mg IV q 4 hours prn pain, oxyir and acetaminophen for pain management. DVT Prophylaxis: Lovenox 40mg subcutaneous once a day. Vitamin D Deficiency: Vitamin D 50,000 units PO once a week. Recommended continued monitoring and once pain is controlled (after block is completely worn off) with oral pain medications, okay to discharge home (likely tomorrow). Appreciate medicine teams assistance.
[2017-09-06] MEDS: oxyCODONE 5 MG Tablet 10 MG PO ×4 (08:31→21:50)
[2017-09-06 08:35] VITALS: BP 141/84; PULSE 88; RESP 18; TEMP 36.8; O2SAT 99
[2017-09-06 09:50] LABS: Hemoglobin A1c 5.3 % (4.2-6.3)
[2017-09-06 14:48] VITALS: BP 145/85; PULSE 109; RESP 18; TEMP 36.8; O2SAT 99
[2017-09-06 20:29] VITALS: BP 151/95; PULSE 102; RESP 20; TEMP 36.7; O2SAT 94
[2017-09-07] MEDS: HYDROmorphone 1 MG/ML Syringe IV ×5 (00:43→20:16)
[2017-09-07] MEDS: oxyCODONE 5 MG Tablet 10 MG PO ×4 (02:18→17:54)
[2017-09-07 02:20] VITALS: BP 145/99; PULSE 98; RESP 20; TEMP 36.7; O2SAT 96
[2017-09-07] MEDS: Ketorolac 30 MG/ML Syringe IV ×3 (04:16→22:13)
[2017-09-07] MEDS: Acetaminophen 325 MG Tablet 650 MG PO ×2 (04:40→15:07)
[2017-09-07] MEDS: Enoxaparin 40 MG/0.4 ML Syringe SC (06:19)
--- NOTE | 2017-09-07 07:15 | PCM.PN.HOSP ---
Patient Problems: Active and Suspected Problems History of foot surgery (Acute) Subjective: Patient seen and examined. Pain was not controlled ovenight. No fever or chills no chest pain or dizziness or palpitation. Able to ambulate to the bathroom and back. Objective: PHYSICAL EXAM: General: Alert, Oriented x3, Cooperative HEENT: Atraumatic, PERRLA, EOMI, Normocephalic Neck: Supple, No JVD, Negative Carotid Bruits Lungs: Clear to auscultation, Normal air movement Cardiovascular: Regular rate, No murmurs Abdomen: Bowel Sounds Present, Soft, Non Tender Extremities: No edema, Capillary Refill Less than 3 Seconds Skin: No rashes, No breakdown Musculoskeletal: No Tenderness to Palpation of Joints or Extremities Neurological: Cranial nerves II-XII grossly intact Psych/Mental Status: Normal Affect, Appropriate Vitals/I&O's: Vital Signs Temp Pulse Resp BP Pulse Ox 98.1 F 98 20 H 145/99 H 96 09/07/17 02:20 09/07/17 02:20 09/07/17 02:20 09/07/17 02:20 09/07/17 02:20 Oxygen Flow Rate (L/min) 2 Oxygen Delivery Method Room Air Weight: 150.593 kg Body Mass Index (BMI) 58.8 Intake and Output for Last 24 Hours 09/05/17 09/06/17 09/07/17 23:59 23:59 23:59 Intake Total 3377 / 3377 1678 / 1678 1267 / 1267 Output Total 325 / 325 1925 / 1925 725 / 725 Balance 3052 / 3052 -247 / -247 542 / 542 Laboratory Results 09/06/17 05:25: Hemoglobin A1c 5.3 Current Medications Acetaminophen (Tylenol) 650 mg PO Q4H PRN PRN PRN Reason: PAIN Last Admin: 09/07/17 04:40 Dose: 650 mg Albuterol Sulfate (Ventolin Aerosols) 2.5 mg INHALATION Q4H.RT PRN PRN Reason: SOB &/OR WHEEZING Enoxaparin Sodium (Lovenox) 40 mg SC DAILY@0600 [facility] Last Admin: 09/07/17 06:19 Dose: 40 mg Ergocalciferol (Vitamin D) 50,000 unit PO Q7D [facility] Last Admin: 09/06/17 08:31 Dose: 50,000 unit Hydromorphone HCl (Dilaudid) 1 - 2 mg IV Q4H PRN PRN PRN Reason: SEVERE PAIN (6-10) Last Admin: 09/07/17 04:41 Dose: 2 mg Ketorolac Tromethamine (Toradol) 30 mg IV Q8 [facility] Stop: 09/12/17 04:11 Last Admin: 09/07/17 04:16 Dose: 30 mg Oxycodone HCl (Oxyir) 10 mg PO Q4H PRN PRN PRN Reason: SEVERE PAIN (6-10) Last Admin: 09/07/17 06:20 Dose: 10 mg Promethazine HCl (Phenergan (Ll)) 12.5 mg IV Q6H PRN PRN PRN Reason: NAUSEA/VOMITING Last Admin: 09/06/17 20:53 Dose: 12.5 mg Sodium Chloride () 5 - 30 ml IV UD PRN PRN Reason: SALINE FLUSH Last Admin: 09/06/17 20:54 Dose: 10 ml Assessment/Plan Active and Suspected Problems History of foot surgery (Acute) 31y/o female with history of asthma, super morbid obesity, flatfoot admitted on 09/05/17 and is status post left foot surgery. 1. POD# 2, s/p left subtalar,talonavicular, 1st metatarsal cuneiform joint arthrodesis; endoscopic gastrocsoleus recession, excision of os trigonum. Pain is fairly uncontrolled, medications, advised her to stick to the p.o. regimen so we can determine the home-going regimen, wound changed by Dr. Monroy. 2. Normocytic normochromic anemia, appears to be a patient's baseline, Hb 11.6 3. Vitamin D deficiency, level on 09/01/2017 was 9, required vitamin D 50,000 units weekly for 8 weeks and then 1000 units daily 4. Asthma, no signs of acute exacerbation, will keep on duoneb prn 5. Super super morbid obesity, BMI 58.8, weight loss and exercise advised 6. Hyperglycemia, morbid obesity, HgbA1c is 5.3. 7. DVT PPx - Lovenox SC Code Visit Inpatient E&M: 18240 Subs Hosp L2
--- NOTE | 2017-09-07 07:19 | PCM.PROGNOTE ---
Patient Problems: Active and Suspected Problems History of foot surgery (Acute) Subjective: Patient seen this morning for follow up on left foot. She has severe pain early this morning after getting up to go to the bathroom, denies any weight or injury to foot, toradol was added, she relates this really helped and foot feeling much better at this time. Patient is afebrile, no complaints of calf pain, shortness of breath, or chest pains. She is resting in bed with foot elevated. - Physical Exam General: Alert, Oriented x3, Cooperative, No apparent distress Extremities: No clubbing, No cyanosis, Capillary Refill Less than 3 Seconds, No Calf Tenderness, Peripheral Pulses Normal, - - Dressing/splint removed from left foot/ankle, incision sites well coapted, sutures intact, some edema to the foot consistent with normal post op course, otherwise no drainage, no necrosis, no blistering, no cellulitis, abscess, no streaking, no evidence of infection present. Sensation intact to the toes on left foot, with motor function intact as well. Psych/Mental Status: Normal Affect, Alert and oriented to time, place, person, mood and affect Vital Signs Temp Pulse Resp BP Pulse Ox 98.1 F 98 20 H 145/99 H 96 09/07/17 02:20 09/07/17 02:20 09/07/17 02:20 09/07/17 02:20 09/07/17 02:20 Oxygen Flow Rate (L/min) 2 Oxygen Delivery Method Room Air Weight: 150.593 kg Body Mass Index (BMI) 58.8 Intake and Output for Last 24 Hours 09/05/17 09/06/17 09/07/17 23:59 23:59 23:59 Intake Total 3377 / 3377 1678 / 1678 1267 / 1267 Output Total 325 / 325 1925 / 1925 725 / 725 Balance 3052 / 3052 -247 / -247 542 / 542 Laboratory Tests Past 24 Hrs 09/06/17 05:25 Hemoglobin A1c 5.3 Assessment/Plan Active and Suspected Problems History of foot surgery (Acute) s/p left foot talonavicular, subtalar, and 1st metatarsal cuneiform joint arthrodesis, excision of os trigonum, and endoscopic gastrocsoleus recession on 09/05/17 Dressing changed, no evidence of infection or DVT, keep clean, dry, intact. No weightbearing left foot. Keep left foot elevated. She declined another popliteal/saphenous nerve block, she relates pain better controlled at this time. Continue with Dilaudid 1-2mg IV q 4 hours prn pain, toradol, oxyir and acetaminophen for pain management; with goal of transitioning off of dilaudid/IV to oral pain meds. DVT Prophylaxis: Lovenox 40mg subcutaneous once a day. Vitamin D Deficiency: Vitamin D 50,000 units PO once a week for 8 weeks. Recommended continued monitoring and once pain is controlled (after block is completely worn off) with oral pain medications, okay to discharge home. Appreciate medicine teams assistance.
[2017-09-07 08:20] VITALS: BP 145/97; PULSE 96; RESP 18; TEMP 36.8; O2SAT 98
[2017-09-07] MEDS: 0.9% NaCl Peripheral Flush Adult/Peds IV ×6 (08:28→22:13)
[2017-09-07] MEDS: diazePAM 2 MG Tablet PO (08:34)
--- NOTE | 2017-09-07 14:46 | CASEMGMT ---
RN CM spoke with pt regarding dc plans. She will return home with her . Has crutches, walker, and family is picking up shower chair and steerable walker scooter from [facility]. Her daughter and will be available to assist. No further needs identified. Aiden KLEIN RN ACM
[2017-09-07 15:20] VITALS: BP 120/79; PULSE 110; RESP 18; TEMP 36.9; O2SAT 98
[2017-09-07 19:56] VITALS: BP 146/93; PULSE 116; RESP 18; TEMP 36.8; O2SAT 99
[2017-09-07 20:03] VITALS: PULSE 116
[2017-09-07] MEDS: Docusate Sodium 100 MG Capsule 200 MG PO (22:13)
[2017-09-08] MEDS: oxyCODONE 5 MG Tablet 10 MG PO ×3 (01:58→12:19)
[2017-09-08 02:00] VITALS: BP 139/75; PULSE 96; RESP 18; TEMP 36.2; O2SAT 100
[2017-09-08] MEDS: 0.9% NaCl Peripheral Flush Adult/Peds IV (05:56)
[2017-09-08] MEDS: Ketorolac 30 MG/ML Syringe IV (05:56)
[2017-09-08] MEDS: Enoxaparin 40 MG/0.4 ML Syringe SC (05:56)
[2017-09-08 08:00] VITALS: BP 141/95; PULSE 107; RESP 18; TEMP 36.8; O2SAT 98
[2017-09-08] MEDS: Docusate Sodium 100 MG Capsule 200 MG PO (08:15)
--- NOTE | 2017-09-08 08:34 | PN_ITS ---
Patient Problems: Active and Suspected Problems History of foot surgery (Acute) Subjective: Patient seen this morning for follow up on left foot. She relates pain is much better controlled. She relates she feels ready to go home. Patient is afebrile, no complaints of calf pain, shortness of breath, or chest pains. She is resting in bed with foot elevated. - Physical Exam General: Alert, Oriented x3, Cooperative, No apparent distress Extremities: Capillary Refill Less than 3 Seconds, No Calf Tenderness, - - Dressing clean, dry, and intact left foot/ankle, no evidence or suspicion of infection or DVT. Sensation intact to the toes on left foot, with motor function intact as well. Psych/Mental Status: Normal Affect, Appropriate, Alert and oriented to time, place, person, mood and affect Vital Signs Temp Pulse Resp BP Pulse Ox 98.2 F 107 H 18 141/95 H 98 09/08/17 08:00 09/08/17 08:00 09/08/17 08:00 09/08/17 08:00 09/08/17 08:00 Oxygen Flow Rate (L/min) 2 Oxygen Delivery Method Room Air Weight: 150.593 kg Body Mass Index (BMI) 58.8 Intake and Output for Last 24 Hours 09/06/17 09/07/17 09/08/17 23:59 23:59 23:59 Intake Total 1678 / 1678 3137 / 3137 1680 / 1680 Output Total 1925 / 1925 1525 / 1525 800 / 800 Balance -247 / -247 1612 / 1612 880 / 880 Assessment/Plan Active and Suspected Problems History of foot surgery (Acute) s/p left foot talonavicular, subtalar, and 1st metatarsal cuneiform joint arthrodesis, excision of os trigonum, and endoscopic gastrocsoleus recession on 09/05/17 Applied new well padded below knee posterior splint. Keep dressing splint and dressing clean, dry, intact. No weightbearing left foot. Keep left foot elevated. Continue to ween from IV medications, and continue with oral pain medications. DVT Prophylaxis: Lovenox 40mg subcutaneous once a day. Vitamin D Deficiency: Vitamin D 50,000 units PO once a week for 8 weeks. From podiatry standpoint okay for patient to go home today: would wait until this afternoon and as long as pain controlled with oral medications okay to go home. This was discussed with her and she agreed with this plan. Prescriptions for oxyir, acetaminophen, lovenox and vitamin D prepared and placed in patient' s chart. Patient to follow up with me on Tuesday09/12/17 in office, sooner if needed. Appreciate medicine teams assistance.
--- NOTE | 2017-09-08 08:45 | PCM.DC.POD ---
Discharge Diet: Light diet - advance as tolerated Discharge Activity: May Not Drive Weight Bearing Status: No weight bearing - Strict nonweightbearing left foot at all times Keep extremity elevated above heart level: Left Leg - Keep left foot elevated using pillow at/above chest level for at least 50 minutes of every hour Call your doctor if your incision/area has: Continuous Slow Oozing, Sudden Increased Bleeding, Increased Pain/ Swelling, Increased Redness, Foul Smelling Discharge Call your doctor if you observe: Fever of 101 or Higher, Coldness, Increased Pain, Shortness of breath, Chest pain, Increased palpitations (irregular heartbeat), Calf discomfort, Uncontrolled pain Cleanse incision/area with: Do not get Incision Wet, Keep Dressing Clean & Dry Allergies/Adverse Reactions: Allergies No Known Allergies Allergy (Verified 08/30/17 15:28) Medications to take at Discharge Acetaminophen [Non-Aspirin Pain Relief] 500 mg PO Q4H PRN PRN #100 tab 09/08/17 Bisacodyl [Laxative] 5 mg PO DAILY PRN #30 tab 09/08/17 Docusate Sodium [Colace] 200 mg PO BID #60 cap 09/08/17 Ergocalciferol [Vitamin D] 50,000 unit PO Q7D #7 cap 09/08/17 Oxycodone [Oxyir] 10 mg PO Q4H PRN PRN 4 Days #50 tab 09/08/17 Rivaroxaban [Xarelto] 10 mg PO DAILY #30 tablet 09/08/17 The following prescriptions were given: Acetaminophen [Non-Aspirin Pain Relief] 500 mg PO Q4H PRN PRN #100 tab PRN Reason: Pain Oxycodone [Oxyir] 10 mg PO Q4H PRN PRN 4 Days #50 tab PRN Reason: Pain Bisacodyl [Laxative] 5 mg PO DAILY PRN #30 tab PRN Reason: Constipation Ergocalciferol [Vitamin D] 50,000 unit PO Q7D #7 cap Rivaroxaban [Xarelto] 10 mg PO DAILY #30 tablet Docusate Sodium [Colace] 200 mg PO BID #60 cap Primary Care Physician: Inessa Betancourt MD [Primary Care Provider] - Please Follow Up With: Harvinder Monroy DPM When: at office on Tuesday09/12/17, call sooner if needed
--- NOTE | 2017-09-08 10:16 | PCM.DC ---
- Discharge Diagnoses Current Active Problems: Current Active and Chronic Problems History of foot surgery (Acute) Reason(s) for Visit for Discharge Instructions: Left foot surgery You will use the following diet at home:: Regular Your food should be the consistency of: Regular Your liquids should be the consistency of: Regular/Thin Discharge Activity: Return to Normal Activity, May Not Drive Weight Bearing Status: No weight bearing - Strict nonweightbearing left foot at all times Keep extremity elevated above heart level: Left Leg - Keep left foot elevated using pillow at/above chest level for at least 50 minutes of every hour Call your doctor if your incision/area has: Continuous Slow Oozing, Sudden Increased Bleeding, Increased Pain/ Swelling, Increased Redness, Foul Smelling Discharge Call your doctor if you observe: Fever of 101 or Higher, Coldness, Increased Pain, Shortness of breath, Chest pain, Increased palpitations (irregular heartbeat), Calf discomfort, Uncontrolled pain Cleanse incision/area with: Do not get Incision Wet, Keep Dressing Clean & Dry Allergies/Adverse Reactions: Allergies No Known Allergies Allergy (Verified 08/30/17 15:28) Medications to take at Discharge Acetaminophen [Non-Aspirin Pain Relief] 500 mg PO Q4H PRN PRN #100 tab 09/08/17 Bisacodyl [Laxative] 5 mg PO DAILY PRN #30 tab 09/08/17 Docusate Sodium [Colace] 200 mg PO BID #60 cap 09/08/17 Enoxaparin Sodium [Lovenox] 40 mg SQ DAILY 30 Days #30 syringe 09/08/17 Ergocalciferol [Vitamin D] 50,000 unit PO Q7D #7 cap 09/08/17 Oxycodone [Oxyir] 10 mg PO Q4H PRN PRN 4 Days #50 tab 09/08/17 The following prescriptions were given: Acetaminophen [Non-Aspirin Pain Relief] 500 mg PO Q4H PRN PRN #100 tab PRN Reason: Pain Oxycodone [Oxyir] 10 mg PO Q4H PRN PRN 4 Days #50 tab PRN Reason: Pain Bisacodyl [Laxative] 5 mg PO DAILY PRN #30 tab PRN Reason: Constipation Enoxaparin Sodium [Lovenox] 40 mg SQ DAILY 30 Days #30 syringe Ergocalciferol [Vitamin D] 50,000 unit PO Q7D #7 cap Docusate Sodium [Colace] 200 mg PO BID #60 cap Primary Care Physician: Inessa Betancourt MD [Primary Care Provider] - Please follow up with your Primary Care Physician in: within 2 weeks Please Follow Up With: Harvinder Monroy DPM When: at office on Tuesday09/12/17, call sooner if needed Proposed Discharge Date: 09/08/17
--- NOTE | 2017-09-08 10:18 | PCM.DC.SUM ---
Discharge Date and Diagnosis Date of Admission: 09/05/17 Date of Discharge: 09/08/17 - Primary Discharge Diagnosis Active and Suspected Problems History of foot surgery (Acute) Hospital Course and Treatment Imaging Results: Clinical Impression(s) from Imaging Studies Foot X-Ray 09/05/17 13:00 IMPRESSION: Intraoperative imaging provided for arthrodesis of the foot as described. Electronically Signed: Osmany Uriostegui MD at 15:51 EST Tel [phone], Service support , Ankle X-Ray 09/05/17 19:35 IMPRESSION: Demonstrated hardware with no evidence of hardware failure with tibial navicular, subtalar, and first metatarsal cuneiform coalition. Electronically Signed: Michael Martínez DO at 22:10 EST , Service support , Foot X-Ray 09/05/17 19:38 IMPRESSION: Demonstrated hardware with no evidence of hardware failure with tibial navicular, subtalar, and first metatarsal cuneiform coalition. Electronically Signed: Michael Martínez DO at 22:03 EST , Service support , Os Calcis X-ray 09/05/17 19:38 IMPRESSION: Demonstrated hardware with no evidence of hardware failure with tibial navicular, subtalar, and first metatarsal cuneiform coalition. Electronically Signed: Michael Martínez DO at 22:02 EST , Service support , Foot X-Ray 09/06/17 08:17 IMPRESSION: Stable arthrodesis as described. No acute pathology. Electronically Signed: Ismael Centeno MD at 17:13 EST , Service support , Ankle X-Ray 09/06/17 08:18 IMPRESSION: Stable arthrodesis as described. No acute pathology. Electronically Signed: Ismael Centeno MD at 17:13 EST , Service support , POdiatry - Dr Monroy Operations: - - left subtalar,talonavicular, 1st metatarsal cuneiform joint arthrodesis; endoscopic gastrocsoleus recession, excision of os trigonum. Procedures: None Summary of Care Provided: 31y/o female with history of asthma, super morbid obesity, flatfoot admitted on 09/05/17 for surgery by podiatry. 1. S/p left subtalar,talonavicular, 1st metatarsal cuneiform joint arthrodesis; endoscopic gastrocsoleus recession, excision of os trigonum. Pain controlled with oxycodone, wound management by podiatry, Dr. Ewing in, patient will get a knee Rollator, will follow up with Dr. Ewing in the outpatient and wound care per wound instructions. 2. Normocytic normochromic anemia, stable 3. Vitamin D deficiency, level on 09/01/2017 was 9, discharged on vitamin D 50,000 units weekly for 8 weeks would need to continue on 1000 units daily after. 4. Asthma, stable, no signs of exacerbation in this admission. 5. Super super morbid obesity, BMI 58.8, weight loss and exercise advised 6. Hyperglycemia, morbid obesity, HgbA1c is 5.3. Discharge Diet: Light diet - advance as tolerated Discharge Activity: Return to Normal Activity, May Not Drive Weight Bearing Status: No weight bearing - Strict nonweightbearing left foot at all times Keep extremity elevated above heart level: Left Leg - Keep left foot elevated using pillow at/above chest level for at least 50 minutes of every hour Call your doctor if your incision/area has: Continuous Slow Oozing, Sudden Increased Bleeding, Increased Pain/ Swelling, Increased Redness, Foul Smelling Discharge Call your doctor if you observe: Fever of 101 or Higher, Coldness, Increased Pain, Shortness of breath, Chest pain, Increased palpitations (irregular heartbeat), Calf discomfort, Uncontrolled pain Cleanse incision/area with: Do not get Incision Wet, Keep Dressing Clean & Dry Home Medications: Medications to take at Discharge Acetaminophen [Non-Aspirin Pain Relief] 500 mg PO Q4H PRN PRN #100 tab 09/08/17 Bisacodyl [Laxative] 5 mg PO DAILY PRN #30 tab 09/08/17 Docusate Sodium [Colace] 200 mg PO BID #60 cap 09/08/17 Ergocalciferol [Vitamin D] 50,000 unit PO Q7D #7 cap 09/08/17 Oxycodone [Oxyir] 10 mg PO Q4H PRN PRN 4 Days #50 tab 09/08/17 Rivaroxaban [Xarelto] 10 mg PO DAILY #30 tablet 09/08/17 Following Prescrptions Were Given to Patient: Acetaminophen [Non-Aspirin Pain Relief] 500 mg PO Q4H PRN PRN #100 tab PRN Reason: Pain Oxycodone [Oxyir] 10 mg PO Q4H PRN PRN 4 Days #50 tab PRN Reason: Pain Bisacodyl [Laxative] 5 mg PO DAILY PRN #30 tab PRN Reason: Constipation Ergocalciferol [Vitamin D] 50,000 unit PO Q7D #7 cap Rivaroxaban [Xarelto] 10 mg PO DAILY #30 tablet Docusate Sodium [Colace] 200 mg PO BID #60 cap Primary Care Physician: Inessa Betancourt MD [Primary Care Provider] - Please follow up with your Primary Care Physician in: within 2 weeks Please Follow Up With: Harvinder Monroy DPM When: at office on Tuesday09/12/17, call sooner if needed Disposition: Home Minutes spent on discharge:: 25 Patient Condition:: Stable Meaningful Use Info Meaningful Use Diagnoses (Choose all that apply): None applicable Code Visit Inpatient E&M: 24531 [facility]
[2017-09-08] MEDS: Acetaminophen 325 MG Tablet 650 MG PO (11:22)
--- NOTE | 2017-09-08 11:49 | NURSING ---
Patient requesting to have PO blood thinner, instead of lovenox. Dr. Monroy notified and escribed xarelto to patient's pharmacy. Lovenox script destroyed per Dr. Monroy's request.
== END 2017-09-08 12:34 | disposition home or self-care (01) ==
LOC: SDC 14:21
PROVIDERS: Internal Medicine; Admitting Provider Podiatrist; Family Provider Family Medicine; PCP Family Medicine; Visit Provider Podiatrist
PROC: (CPT 27687; principal; 2017-09-05 12:45)
DX: M21.42 Flat foot [pes planus] (acquired), left foot (principal); E66.01 Morbid (severe) obesity due to excess calories; Z68.43 Body mass index [BMI] 50.0-59.9, adult; Z71.3 Dietary counseling and surveillance; E55.9 Vitamin D deficiency, unspecified; M19.072 Primary osteoarthritis, left ankle and foot; R73.9 Hyperglycemia, unspecified; J45.909 Unspecified asthma, uncomplicated; D64.9 Anemia, unspecified; G89.29 Other chronic pain
CPT/HCPCS: 27687; 28725; 28737; 28740; 64450; 36415; 73600; 73610; 73630; 73650; 76000; 80048; 81025; 82306; 83036; 85025; 88305; 88307; 88311; 96365; 96366; 96372; 96375; 96376; 97116; 97162; 99218; J3010; J7120; A4216; G0378; G0379; J2405; J3490

== ENCOUNTER 2018-03-10 13:30 | Outpatient (RCR) | payer BC, SELFPAY ==
--- NOTE | 2017-11-01 15:56 | HP.PTEVAL_ITS ---
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 Date of Evaluation: 11/01/17 Physical Therapist: Lexis Schulz - Visit Plan Frequency: 3x /Week Duration: 3 Months Plan: 3X/ week for 6+ weeks to work on L ankle AROM/PROM and stetching (jaja gastroc and soleus), gait training (50% WB with CAM boot until November 15) and then progress to full weightbearing with CAM boot after November 15 and as able. Work on decreasing swelling and increasing strength with HEP - Subjective Subjective: September 05, 2017 had surgery on L foot. Pt had a double aethrodesis and stretched the muscle that attaches to the achilles, 4 screws and plate on big toe cause she had no arch. She has had severe arthritis in her foot and she was a toe walker since . They tried casts when was little but left her with a flat foot. It was becoming difficult to get through a day of work because of the pain. She just got the ok yesterday to put weight through it. Pt has a walker at home and has not attempted crutches yet. She has a wheelchair ramp that they rented at home. 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 She RTW at the end of January/February. She has stairs to get into the house and has the ramp until whenever. 6 steps with a railing at her own house. It does not hurt at all if she is off of it. If she put pressure on it it is sharp and dull pain. Has a shower chair. Doing ankle pumps at home. - Pain L ankle pain Pain Intensity (Out of 10): 0 Comment: with weight bearing 8/10 with CAM boot on. - Objective Gait: Walks with a rolling walker with CAM boot on the L leg on her toe on the L. ENcourgage pt to walk heel to toe gait pattern with 50% WB and use of her arms on the walker with gait. L ankle AROM: DF -20 degrees from neutral, PF 60 degrees, Ev 4 degrees, INV 9 degrees. L ankle is extremely swollen and red along the metatarsals. Scar is pretty tight. - Goals Goal 1:: I HEP Goal Time Frame: 8-12 Weeks Goal 2:: Be able to go up and down stairs with 1 handrail (on L side going up), with SBA with least restricitive device. Goal 3:: Be able to walk once FWB with normal heel to toe gait pattern. Goal Time Frame: 8-12 Weeks Goal 4:: Increase L ankle AROM DF 5 degrees DF to be able to walk with more normal gait pattern Goal Time Frame: 8-12 Weeks Goal 5:: decrease pain to 1/10 with gait. Goal Time Frame: 4-6 Weeks - Rehabilitation Potential Physical Therapy Diagnosis: s/p 09/05/17 Rehabilitation Potential: Good - Anticipated Interventions Patient/Client Instruction: Educate patient on: Condition, Plan of Care For the Purpose of:: To decrease pain, To decrease swelling/inflammation, To increase ROM, To improve nutrient delivery to tissue, To improve muscle performance and motor function, To improve ability to perform ADL's, To increase tolerance to activity/condition/position, To improve performance and independence with ADL's, To decrease level of supervision to perform tasks, To improve ability of physical actions for home/community/work/leisure, To improve gait and locomotor functions, To improve health of tissue, To decrease soft tissue restriction, To increase flexibility/ROM, To improve endurance, To improve balance, To improve safety with gait Therapeutic Exercise to Include: Strength training, Balance training, Flexibilty training, Gait and locomotor training, Passive ROM, Active ROM For the Purpose of:: To decrease pain, To decrease swelling/inflammation, To increase ROM, To improve nutrient delivery to tissue, To increase oxygenation perfusion, To improve muscle performance and motor function, To improve ability to perform ADL's, To increase tolerance to activity/condition/position, To improve performance and independence with ADL's, To decrease level of supervision to perform tasks, To improve ability of physical actions for home/ community/work/leisure, To improve gait and locomotor functions, To improve health of tissue, To decrease soft tissue restriction, To increase flexibility/ ROM, To improve endurance, To improve balance, To improve safety with gait Functional Training to Include: Gait training For the Purpose of:: To improve gait and locomotor functions, To improve safety with gait Manual Therapy Techniques to Include: Passive ROM, Soft tissue mobilization For the Purpose of:: To decrease swelling/inflammation, To increase ROM, To improve nutrient delivery to tissue, To improve muscle performance and motor function, To improve ability to perform ADL's, To increase flexibility/ROM Thank you for the opportunity to evaluate your patient. For Medicare and Medicare HMO plans, please review the plan of care and approve it. It will need to be FAXED BACK to us at [phone] for Medicare purposes. Please let me know if there are questions or concerns regarding this plan of care. Physician Signature: Date:
--- NOTE | 2017-12-20 16:20 | HP.PTREVAL_ITS ---
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 Please see the progress note below for an update on the physical therapy plan of care! Subjective: said 3 more weeks in the boot and then she is to try a shoe 1 hour-2 hours/day and then she sees the Dr who will prob send back to PT. He checked her ROM today and she said it was not good. Her bone grafts are not completely healed. SHe has the ornage and green band and she will keep doing them at home. She is going up and down the stairs..... She uses the cane when walking in public but not so much at time. Objective/Function: Gait: walks with a cane and CAM boot on the L ankle with not a normal gait pattern. L ankle AROM: 1 degree ankle DF and PF 50 degrees. Plan Plan: Hold chart X 4 weeks and pt will see Dr and probably return once she is in a shoe and walking comfortably. Strongly encouraged pt to stretch gastroc with a towel 3X/ day to increase DF AROM Goals Goal 1:: I HEP Goal Time Frame: 8-12 Weeks Goal Progress: Goal Met Goal 2:: Be able to go up and down stairs with 1 handrail (on L side going up), with SBA with least restricitive device. Goal Progress: Goal Met Goal 3:: Be able to walk once FWB with normal heel to toe gait pattern. Goal Time Frame: 8-12 Weeks Goal 4:: Increase L ankle AROM DF 5 degrees DF to be able to walk with more normal gait pattern Goal Time Frame: 8-12 Weeks Goal 5:: decrease pain to 1/10 with gait. Goal Time Frame: 4-6 Weeks Goal Progress: Progressing Anticipated Interventions Patient/Client Instruction: Educate patient on: Condition, Plan of Care For the Purpose of:: To decrease pain, To decrease swelling/inflammation, To increase ROM, To improve nutrient delivery to tissue, To improve muscle performance and motor function, To improve ability to perform ADL's, To increase tolerance to activity/condition/position, To improve performance and independence with ADL's, To decrease level of supervision to perform tasks, To improve ability of physical actions for home/community/work/leisure, To improve gait and locomotor functions, To improve health of tissue, To decrease soft tissue restriction, To increase flexibility/ROM, To improve endurance, To improve balance, To improve safety with gait Therapeutic Exercise to Include: Strength training, Balance training, Flexibilty training, Gait and locomotor training, Passive ROM, Active ROM For the Purpose of:: To decrease pain, To decrease swelling/inflammation, To increase ROM, To improve nutrient delivery to tissue, To increase oxygenation perfusion, To improve muscle performance and motor function, To improve ability to perform ADL's, To increase tolerance to activity/condition/position, To improve performance and independence with ADL's, To decrease level of supervision to perform tasks, To improve ability of physical actions for home/ community/work/leisure, To improve gait and locomotor functions, To improve health of tissue, To decrease soft tissue restriction, To increase flexibility/ ROM, To improve endurance, To improve balance, To improve safety with gait Functional Training to Include: Gait training For the Purpose of:: To improve gait and locomotor functions, To improve safety with gait Manual Therapy Techniques to Include: Passive ROM, Soft tissue mobilization For the Purpose of:: To decrease swelling/inflammation, To increase ROM, To improve nutrient delivery to tissue, To improve muscle performance and motor function, To improve ability to perform ADL's, To increase flexibility/ROM Please do not hesitate to contact me at [phone] by phone or Fax: if you have questions or concerns regarding this new plan of care! Sincerely, Lexis Schulz
--- NOTE | 2018-02-03 12:06 | HP.PTREVAL_ITS ---
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 Please see the progress note below for an update on the physical therapy plan of care! Subjective: Pt just got out of the boot a week ago and is walkin with a straight cane. She has no restrictions and it is completely healed according to . She returns to Dr on Feb 18. Pt is not going to be able to go back to Mar 04 to work to be able to stand for 7 hours a day. Pt's pain is across the front of the ankle and is really stiff. It takes about 10-15 steps for ankle to warm up and then she can walk a little better. Does not use a cane at home. SHe has more swelling and has a huge factore with walking. She is doing the blue band at home. Objective/Function: L ankle AROM: 1 degree DF, INV 19 degrees and EV 2 degrees and 50 degrees PF. L ankle MMT: DF 3+/5, PF 4-/5, EV 4-/5 and INV 4-/5. Standing heel and toe raises: Tight gastroc on the L (substitutes at the knee) . Stairs: definity decreased L ankle DF descending stairs and mores use of UE. Gait: walks with decreased stance time on the L LE and pt uses hyper extension of her knee to make up for lack of ankle DF Plan Plan: 2X/ week for 4-5 weeks for L ankle AROM, PROM, Swelling reduction, weight bearing exercises, gait training, L ankle strengthening, balance with HEP. Goals Goal 1:: I HEP Goal Time Frame: 8-12 Weeks Goal Progress: Goal Met Goal 2:: Be able to go up and down stairs recip with 1 handrail (on L side going up), with SBA with least restricitive device. Goal Progress: Goal Met Goal 3:: Be able to walk once FWB with normal heel to toe gait pattern. Goal Time Frame: 8-12 Weeks Goal 4:: Increase L ankle AROM DF 5 degrees DF to be able to walk with more normal gait pattern Goal Time Frame: 8-12 Weeks Goal 5:: decrease pain to 1/10 with gait. Goal Time Frame: 4-6 Weeks Goal Progress: Progressing Anticipated Interventions Patient/Client Instruction: Educate patient on: Condition, Plan of Care For the Purpose of:: To decrease pain, To decrease swelling/inflammation, To increase ROM, To improve nutrient delivery to tissue, To improve muscle performance and motor function, To improve ability to perform ADL's, To increase tolerance to activity/condition/position, To improve performance and independence with ADL's, To decrease level of supervision to perform tasks, To improve ability of physical actions for home/community/work/leisure, To improve gait and locomotor functions, To improve health of tissue, To decrease soft tissue restriction, To increase flexibility/ROM, To improve endurance, To improve balance, To improve safety with gait Therapeutic Exercise to Include: Strength training, Balance training, Flexibilty training, Gait and locomotor training, Passive ROM, Active ROM For the Purpose of:: To decrease pain, To decrease swelling/inflammation, To increase ROM, To improve nutrient delivery to tissue, To increase oxygenation perfusion, To improve muscle performance and motor function, To improve ability to perform ADL's, To increase tolerance to activity/condition/position, To improve performance and independence with ADL's, To decrease level of supervision to perform tasks, To improve ability of physical actions for home/ community/work/leisure, To improve gait and locomotor functions, To improve health of tissue, To decrease soft tissue restriction, To increase flexibility/ ROM, To improve endurance, To improve balance, To improve safety with gait Functional Training to Include: Gait training For the Purpose of:: To improve gait and locomotor functions, To improve safety with gait Manual Therapy Techniques to Include: Passive ROM, Soft tissue mobilization For the Purpose of:: To decrease swelling/inflammation, To increase ROM, To improve nutrient delivery to tissue, To improve muscle performance and motor function, To improve ability to perform ADL's, To increase flexibility/ROM Please do not hesitate to contact me at [phone] by phone or Fax: if you have questions or concerns regarding this new plan of care! Sincerely, Lexis Schulz
--- NOTE | 2018-03-10 14:07 | HP.PTDCSUM_ITS ---
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 Discharge Date: 03/10/18 Please see the following information for a summary of their discharge status. - Subjective Subjective: Pt has gotten a longer diability as some days are better than others... she is off until the end of the year. She reports that she can walk around for about short distances and then she has to sit. said that there is a screw at the top of the foot that has started to pinch and the pain comes and goes. She stretches off the edge of the step really helps to stretch. Somedays the towel stretch helps and other days it does not help. Pt swam over the weekend and it seemed to help. Pt is doing ankle exercises with orange and blue band, standing heel and toe raises. she reports that she has no balance on one leg. She constantly tries to move her ankle while sitting there - Pain L ankle pain Pain Intensity (Out of 10): 0 - Overall Improvement % Improvement: 80 - Objective Objective/Function: Would recommend MD request additional PT from insurance company as I feel principal librarian benefits would be great as far as wear and tear on the L ankle as well as on the L knee joint as well. Discussed this with the pt and she will ask MD if he agrees with and willing to petition the insurance company for additional visits. Concerned that pt is using L knee hyper- extension in place of ankle DF with gait. Concerned that pt is still limping and shying away from putting full pressure and ROM through L ankle. L ankle 6 degrees DF and 40 degrees PF in unloaded position. Gait: Walks with decreased stance time on the L, decreased L ankle DF, increased L knee hyper-extension. Standing heel raises: unable to do unless majority of weight is shifted onto the R leg. Standing toe raises: unable to do unless the majority of weight shift is on the R leg. Stairs: up stairs recip with hand rail. Descending stairs pt is only able to do recip with 2 hand rails and lifting self instead of bending L ankle - Goals Goal 1:: I HEP Goal Progress: Goal Met Goal 2:: Be able to go up and down stairs recip with 1 handrail (on L side going up), with SBA with least restricitive device. Goal Progress: Progressing Goal 3:: Be able to walk once FWB with normal heel to toe gait pattern. Goal Progress: Progressing Goal 4:: Increase L ankle AROM DF 5 degrees DF to be able to walk with more normal gait pattern Goal Progress: Progressing Goal 5:: decrease pain to 1/10 with gait. Goal Progress: Goal Met - Plan Plan: DC PT only due to insurance instructions. Pt will go to HEP including ankle ROM, stretching, strengthening, and gait training in a mirror for visual feedback. - D/C Information Discharge Comments: DC PT only due to insurance restrictions If there are questions or concerns regarding this patient's physical therapy, please feel free to call me at [phone]. Thank you for the referral of this patient. Sincerely, Lexis Schulz
== END 2018-03-10 19:00 | disposition home or self-care (01) ==
LOC: PT 13:30
PROVIDERS: Family Provider Family Medicine; PCP Family Medicine; Visit Provider Podiatrist
DX: Z98.890 Other specified postprocedural states (principal)
CPT/HCPCS: 97110; 97140; 97161; 97530

== ENCOUNTER → 2018-03-27 16:53 | Outpatient (CLI) | payer BC, SELFPAY ==
[2018-03-27 18:23] LABS: Vitamin D,25 Hydroxy 18.8 ng/mL (29.95-100.01)
== END ==
PROVIDERS: Family Provider Family Medicine; PCP Family Medicine; Visit Provider Podiatrist
DX: E55.9 Vitamin D deficiency, unspecified (principal)
CPT/HCPCS: 36415; 82306

== ENCOUNTER → 2018-04-21 16:41 | Outpatient (CLI) | payer BC, SELFPAY ==
--- NOTE | 2018-04-21 16:46 | CT_ITS ---
Exam: Noncontrast CT of the left ankle and foot. HISTORY: Symptomatic hardware. COMPARISON: Radiographs 09/06/2017. FINDINGS: Patient has had talocalcaneal and talonavicular ankylosis. 2 screws pass through the calcaneus and into the talus. 2 screws pass through the navicular and into the talus. There is ankylosis with an orthopedic plate and screws, of the first tarsal and the medial cuneiform. Bony fusion exists between the talus, calcaneus, and the navicular. Bony fusion exists between the first metatarsal and cuneiform. No evidence for loosening of any of the screws or the compression plate. No acute fractures or dislocations. No definite areas of avascular necrosis. There is diffuse demineralization. One of the screws that passes through the compression plate, and through the base of the first metatarsal, extends lateral to the bone contour and impacts the base of the second metatarsal. This can be seen on axial images 48-54. Grossly normal soft tissue structures. CT/Extremity Lower without Contra IMPRESSION: No definite acute abnormality, or definite complication related to the surgical fixation devices. Electronically Signed: Deng Powers MD at 23:05 EDT , Service support ,
== END ==
PROVIDERS: Family Provider Family Medicine; PCP Family Medicine; Referring Provider Podiatrist; Visit Provider Podiatrist
DX: T85.848A Pain due to other internal prosthetic devices, implants and grafts, initial encounter (principal)
CPT/HCPCS: 73700

== ENCOUNTER 2018-05-19 12:37 | Day surgery (SDC) | payer BC, SELFPAY ==
[2018-05-18 12:25] LABS: Absolute Lymphocyte Count 2.37 X10^3/ul (0.83-4.51); Absolute Neutrophil Count 5.1 X10^3/uL (2.0-7.7); Basophil# 0.04 X10^3/uL; Basophil% 0.5 % (0-1); Eosinophil# 0.11 X10^3/uL; Eosinophils% 1.4 % (0-5); Hematocrit 39.1 % (37-47); Hemoglobin 12.9 g/dl (12.0-15.0); Lymphocyte # 2.37 X10^3/ul (4.0); Lymphocyte % 29.1 % (19-41); Mean Corpuscular Hgb 28.8 pg (27.0-32.0); Mean Corpuscular Volume 87.3 fL (81-99); Mean Platelet Vol. 9.7 fl (6.2-12.0); Monocyte# 0.43 X10^3/uL; Monocyte% 5.3 % (0-10); Neutrophil # 5.14 X10^3/uL (2.7-7.7); Neutrophil % 63.1 % (47-70); Platelet Count 274 K/mm3 (150-450); RBC Distribution Width CV 13.8 % (11.6-14.6); RBC Distribution Width SD 42.8 fl (35.1-43.9); Red Blood Count 4.48 M/mm3 (4.2-5.4); White Blood Count 8.1 K/mm3 (4.4-11.0)
[2018-05-18 12:34] LABS: POSITIVE COUNT NO; POSITIVE DIFFERENTIAL NO; POSITIVE MORPHOLOGY NO
[2018-05-18 12:38] LABS: ALB/GLOB Ratio 0.6 RATIO (0.9-2.4); AST(SGOT) 18 U/L (15-37); Alanine Aminotransfer ALT/SGPT 26 U/L (13-56); Albumin, Serum 2.9 g/dL (3.2-5.0); Alkaline Phosphatase 146 U/L (45-117); Anion Gap 9 (5-15); BUN 12 mg/dL (7-18); BUN/Creat Ratio 15.3 RATIO (10-20); Calcium,Total 8.8 mg/dL (8.5-10.1); Chloride 109 mmol/L (98-107); Creatinine, Serum 0.78 mg/dL (0.55-1.02); EST Glomerular Filtration Rate 91 mL/min (>60); Est Glom Filt Rate - Afr Amer 110 mL/min (>60); Globulin 4.6 g/dL (2.2-4.2); Glucose 87 mg/dL (74-106); Potassium 3.9 mmol/L (3.5-5.1); Protein, Total 7.5 g/dL (6.4-8.2); Sodium Level 143 mmol/L (136-145)
[2018-05-19] VITALS (8 sets, daily range): BP systolic 131–167; BP diastolic 76–101; PULSE 81–101; RESP 16–20; TEMP 36.4–37.4; O2SAT 95–100; BMI 59.4
[2018-05-19 13:12] LABS: Internal QC Validated? YES +Cl - CLEAR BKGD; Pregnancy, Urine Negative Negative
[2018-05-19] MEDS: Cefazolin 2 GM in 0.9% Normal Saline 100 ML IV (14:20)
--- NOTE | 2018-05-19 15:20 | RAD_ITS ---
STUDY: X-RAY - LEFT FOOT CLINICAL: Female, 32 years old. Hardware removal. TECHNIQUE: 2 view(s) of the foot. COMPARISON: X-ray foot 09/06/2017. CT foot 04/21/2018. FINDINGS: Calcaneal fixation screws remain. A single fixation screw through the navicular bone remains. A single fixation screw of the mid shaft of the 1st metatarsal remains. The plate and screw fixation across the 1st tarsometatarsal articulation remains. The remaining surgical hardware, multiple additional screws, has been removed. 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 No acute fracture. RAD/Foot 2 Views IMPRESSION: Hardware removal as described above. Electronically Signed: José Antonio Bhat, at 16:19 EST Tel , Service support ,
[2018-05-19] MEDS: Bupivacaine Mpf 0.5% 30 ML VIAL (15:28)
--- NOTE | 2018-05-19 15:52 | DCINST_ITS ---
Discharge Diet: Light diet - advance as tolerated Discharge Activity: May Not Drive Weight Bearing Status: Weight bearing as tolerated - Keep foot protected with CAM boot with any weightbearing left foot Keep extremity elevated above heart level: Left Leg - Keep foot elevated as much as possible Call your doctor if your incision/area has: Continuous Slow Oozing, Sudden Increased Bleeding Call your doctor if you observe: Fever of 101 or Higher, Coldness, Increased Pain, Shortness of breath, Chest pain, Increased palpitations (irregular heartbeat), Calf discomfort, Uncontrolled pain Cleanse incision/area with: Do not get Incision Wet, Keep Dressing Clean & Dry Allergies/Adverse Reactions: Allergies No Known Allergies Allergy (Verified 05/12/18 13:46) Medications to take at Discharge Acetaminophen [Non-Aspirin Pain Relief] 500 mg PO Q4H PRN PRN #100 tab 09/08/17 Ergocalciferol [Vitamin D] 50,000 unit PO Q7D #7 cap 09/08/17 Ethinyl Estradiol/Drospirenone [Kasey 28 Tablet] 1 each PO DAILY 05/12/18 Hydrocodone/Acetaminophen [Vicodin 5-300 mg Tablet] 1 - 2 tab PO Q6H PRN PRN 3 Days #21 tab 05/19/18 The following prescriptions were given: Hydrocodone/Acetaminophen [Vicodin 5-300 mg Tablet] 1 - 2 tab PO Q6H PRN PRN 3 Days #21 tab PRN Reason: Pain Primary Care Physician: Inessa Betancourt MD [Primary Care Provider] - Test Results: Test results from this visit will be discussed in further detail at your follow- up appointment, if applicable. Please Follow Up With: Harvinder Monroy DPM When: within 1 week, sooner if needed
--- NOTE | 2018-05-19 15:52 | PCM.OPRPT ---
Report of Operation Date of Procedure: 05/19/18 Pre-Operative Diagnosis: Painful hardware, left foot Post-Operative Diagnosis: Same Surgery/Procedure Performed:: Hardware removal left foot Description of Surgical Findings:: hardware, left foot nurse advocate: yes - Dr. 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 She was progressing well, however she has been having on going dorsal midfoot pain post operatively. CT scan was ordered and did show fusion sites with osseous healing and overall doing well, however lateral talonavicular arthrodesis screw in the naviculocuneiform joint, and also one of the 1st tarsometatarsal arthrodesis screws impinging intra-articular as well. Initially we were just planning to remove the lateral talonavicular arthrodesis screw, however after further review and after discussing with patient in detail, we agreed to proceed with removal of both of the talonavicular joint screws as well as removal of that one 1st tarsometatarsal arthrodesis screw in hopes this will help resolve her pain. This was discussed with her in great detail. We reviewed the procedures, as well as the rationale of the procedure with her in great detail. We discussed and reviewed the possible benefits vs risks/potential complications. The estimated healing/recovery time and protocol were reviewed with her in detail. Reviewed the goals and the expectations. She expressed understanding and agreement and elected to proceed forward with surgical intervention as noted above. Of note, she did not want to proceed with removal of all the hardware to minimize incision size and healing time (she recently started a new job). The consent forms were reviewed with her and she freely signed them. All of her questions were answered. No guarantees were given or implied. Operative Procedure: The patient was brought back into the operating room and was placed on the operating table in the supine position. Patient was carefully secured to the operating room table with a safety belt around her waist. A time out was performed and the patient was properly identified and the surgical plan was confirmed. The patient received 3 grams of intervenous Cefazolin for antibiotic prophylaxis. The patient received general anesthesia per the anesthesiologist. A well padded pneumatic tourniquet was applied around her left ankle, however was never inflated. The left lower extremity was scrubbed, prepped, and draped in the usual aseptic fashion. Further attention was directed to the left foot, and using intraoperative fluoroscopy the screws were visualized. A kwire was placed down the center of the talonavicular screws, and two small incisions were made overlying the dorsal aspect of the foot for removal of each of these screws. Careful dissection was completed down to the screw heads. It was noted the lateral screw was in the naviculocuneiform joint dorsally. The kwires were removed because we did not have the cannulated screw bulk delivery driver. I was able to remove the screws with the non-cannulated screw bulk delivery driver without complication. Next attention was directed to the plantar medial foot at level of the 1st tarsometatarsal arthrodesis site. The compression (homerun) screw was visualized on intra operative fluoroscopy. An incision was made at this level and careful dissection was completed down to the screw head. The screw was removed with the appropriate screw bulk delivery driver without complication. Intra operative fluoroscopy confirmed removal of these screws. Again, this was done without complication. The sites were flushed out with copious amounts of normal saline solution. Hemostasis was achieved. 12 mL of 0.5% Bupivacaine plain was given as a local nerve block around the surgical sites to aid with post operative pain control. The subcutaneous tissue layer was reapproximated using 3-0 Vicryl and the skin was reapproximated using 4-0 Monocryl. A dressing was applied which consisted of Betadine soaked Adaptic, 4x4 gauze, Kerlix and simran dressing. She tolerated the procedure well and the anesthesia well with no complications. The patient was transported to the recovery room with vital signs stable and in good condition. Post operative orders were placed, post operative instructions were dispensed and reviewed. Advised protected weightbearing in CAM Walker, and keep foot elevated as much as possible. Keep dressing clean, dry and intact. She is going to hold off on returning to work for the next 1 week. She is to follow up with me next week in office, sooner if needed. Also post operative xrays were obtained of the left foot in the recovery room which confirmed the screws were removed without complication. Grafts/Implants Used: None - Complications None
--- NOTE | 2018-05-19 16:20 | RAD_ITS ---
STUDY: X-RAY - LEFT FOOT CLINICAL: Female, 32 years old. Hardware removal. TECHNIQUE: Frontal and lateral view(s) of the foot. COMPARISON: None. FINDINGS: Plate and screw fixation across the tarsometatarsal articulation of the 1st digit remains present. Calcaneal screws remain present. The remaining hardware has been moved. There is diffuse osteopenia most likely reflect diffuse osteopenia but potentially associated with post injury/postsurgical reflex synthetic dystrophy. Peritracheal dorsal foot soft tissue swelling. No deep soft tissue gas or radiodense foreign body. RAD/Foot 2 Views IMPRESSION: Partial hardware removal. Soft tissue swelling. Diffuse osteopenia. Electronically Signed: José Antonio Bhat, at 18:30 EST Tel , Service support ,
[2018-05-19] MEDS: HYDROcodone Bitartrate/Apap 5/325 Tablet PO (17:38)
== END 2018-05-19 18:30 | disposition home or self-care (01) ==
LOC: SDC 12:37 → AC 12:38
PROVIDERS: Anesthesiology; Family Provider Family Medicine; PCP Family Medicine; Referring Provider Podiatrist; Visit Provider Podiatrist
PROC: (CPT 20680; principal; 2018-05-19 14:00)
DX: T85.848A Pain due to other internal prosthetic devices, implants and grafts, initial encounter (principal); G47.30 Sleep apnea, unspecified; E66.9 Obesity, unspecified; Z68.43 Body mass index [BMI] 50.0-59.9, adult
CPT/HCPCS: 01480; 20680; 36415; 73620; 73630; 76000; 80053; 81025; 85025; J7120; J2405

== ENCOUNTER → 2018-07-27 10:04 | Outpatient (CLI) | payer BC, SELFPAY ==
[2018-05-19 12:59] VITALS: BMI 59.4
[2018-07-31 09:00] LABS: HPV Reflexed? NOT INDICATED
== END ==
PROVIDERS: PCP Family Medicine; Visit Provider Obstetrics & Gynecology
DX: Z12.4 Encounter for screening for malignant neoplasm of cervix (principal)
CPT/HCPCS: 88175; G0145

== ENCOUNTER → 2018-09-18 17:43 | Outpatient (CLI) | payer BC, SELFPAY ==
[2018-05-19 12:59] VITALS: BMI 59.4
== END ==
PROVIDERS: Referring Provider Nurse Practitioner Adult Health; Visit Provider Nurse Practitioner Adult Health
DX: R30.0 Dysuria (principal)
CPT/HCPCS: 87086; 87088

== ENCOUNTER → 2019-04-23 | Outpatient (CLI) | payer BC, SELFPAY ==
[2018-05-19 12:59] VITALS: BMI 59.4
[2019-04-23 14:09] LABS: Absolute Lymphocyte Count 2.51 X10^3/uL (0.83-4.51); Absolute Neutrophil Count 6.8 X10^3/uL (2.0-7.7); Basophil# 0.06 X10^3/uL; Basophil% 0.6 % (0-1); Eosinophil# 0.13 X10^3/uL; Eosinophils% 1.3 % (0-5); Hematocrit 39.9 % (37-47); Hemoglobin 13.2 g/dL (12.0-15.0); Lymphocyte # 2.51 X10^3/ul (4.0); Lymphocyte % 25.3 % (19-41); Mean Corp Hgb Conc 33.1 g/dL (32-36); Mean Corpuscular Hgb 29.4 pg (27.0-32.0); Mean Corpuscular Volume 88.9 fL (81-99); Mean Platelet Vol. 9.7 fl (6.2-12.0); Monocyte# 0.36 X10^3/uL; Monocyte% 3.6 % (0-10); NRBC Flagged by Analyzer 0 % (0-5); Neutrophil # 6.79 X10^3/uL (2.7-7.7); Neutrophil % 68.6 % (47-70); Platelet Count 252 K/mm3 (150-450); RBC Distribution Width CV 13.2 % (11.6-14.6); Red Blood Count 4.49 M/mm3 (4.2-5.4); White Blood Count 9.9 K/mm3 (4.4-11.0)
[2019-04-23 14:39] LABS: ALB/GLOB Ratio 0.6 RATIO (0.9-2.4); AST(SGOT) 14 U/L (15-37); Alanine Aminotransfer ALT/SGPT 25 U/L (13-56); Albumin, Serum 3.1 g/dL (3.2-5.0); Alkaline Phosphatase 138 U/L (45-117); Anion Gap 6 (5-15); BUN 8 mg/dL (7-18); BUN/Creat Ratio 10.6 RATIO (10-20); Calcium,Total 8.9 mg/dL (8.5-10.1); Chloride 107 mmol/L (98-107); Creatinine, Serum 0.75 mg/dL (0.55-1.02); EST Glomerular Filtration Rate 95 mL/min (>60); Est Glom Filt Rate - Afr Amer 115 mL/min (>60); Globulin 4.8 g/dL (2.2-4.2); Glucose 111 mg/dL (74-106); Potassium 3.6 mmol/L (3.5-5.1); Protein, Total 7.9 g/dL (6.4-8.2); Sodium Level 140 mmol/L (136-145); Thyroid Stim Hormone (TSH) 1.91 uIU/mL (0.358-3.74)
== END | disposition home or self-care (01) ==
LOC: MFPLAB 11:48
PROVIDERS: Family Provider Family Medicine; PCP Family Medicine; Referring Provider Family Medicine; Visit Provider Family Medicine
DX: R53.81 Other malaise (principal); R53.83 Other fatigue
CPT/HCPCS: 36415; 80053; 84443; 85025

== ENCOUNTER → 2020-07-07 15:38 | Outpatient (CLI) | payer BC, SELFPAY ==
[2018-05-19 12:59] VITALS: BMI 59.4
== END ==
PROVIDERS: PCP Family Medicine; Visit Provider Nurse Practitioner Family
DX: Z20.822 Contact with and (suspected) exposure to COVID-19 (principal)
CPT/HCPCS: 87635; U0005; U0003

== ENCOUNTER → 2020-07-23 | Outpatient (CLI) | payer BC, SELFPAY ==
[2018-05-19 12:59] VITALS: BMI 59.4
== END | disposition home or self-care (01) ==
LOC: MFPLAB 15:07 → LABSPEC 15:08
PROVIDERS: PCP Family Medicine; Referring Provider Family Medicine; Visit Provider Family Medicine
DX: U07.1 COVID-19 (principal)
CPT/HCPCS: 87635; U0005; U0003

== ENCOUNTER 2021-02-11 12:49 | Emergency (ER) | payer BC, SELFPAY ==
[2018-05-19 12:59] VITALS: BMI 59.4
[2021-02-11 12:50] VITALS: BP 130/114; PULSE 116; RESP 18; TEMP 37.1; O2SAT 95; BMI 67.3
--- NOTE | 2021-02-11 13:11 | ED.VIS.DYS ---
HPI History of Present Illness Chief Complaint: Asthma Informant: patient Narrative Narrative: 35-year-old female presents with an asthma exacerbation. Patient states that yesterday she went to see her doctor and was felt that she was having a mild flare of her asthma due to viral URI. She was using her albuterol MDI which unfortunately has not given her any relief today. She notes increased shortness of breath and wheezing. She does note some mild rhinorrhea. No reported fevers. She has previously had Covid [facility] Medical History (Updated 02/11/21 @ 13:22 by Kalyani Jj) Asthma COVID-19 Home Medications albuterol sulfate 2.5 mg INHALATION Q4H PRN #25 vial 02/11/21 [Rx Last Taken Unknown] norethindrone (contraceptive) 0.35 mg PO DAILY 02/11/21 [History Last Taken Unknown] prednisone 60 mg PO DAILY #12 tablet 02/11/21 [Rx Last Taken Unknown] Allergy/AdvReac Type Severity Reaction Status Date / Time No Known Allergies Allergy Verified 02/11/21 12:51 Social History (Updated 02/11/21 @ 13:[address] Saúl Clay, ) Smoking Status: Never smoker substance use type: does not use ROS ROS ED Constitutional Constitutional ED: Denies chills or weight loss Eyes Eyes: Denies change in vision or diplopia ENT ENT ED: Reports rhinorrhea; Denies ear pain or sore throat Cardiovascular Cardiovascular: Denies chest pain, orthopnea, palpitations or racing heartbeat Respiratory/Chest Respiratory/Chest: Reports cough, dyspnea and dyspnea on exertion; Denies orthopnea Gastrointestinal Gastrointestinal: Denies abdominal pain, diarrhea, nausea or vomiting Genitourinary Genitourinary ED: Denies dysuria, hematuria or urinary frequency Musculoskeletal Musculoskeletal: Denies arthralgias or myalgias Integumentary Denies abscess or rash Neurologic Neurologic: Denies headache(s) or weakness Psychiatric Psychiatric: Denies anxiety, depression, suicidal ideation or suicidal thoughts Endocrine Endocrinology: Denies polydipsia, polyphagia or polyuria Allergic/Immunologic Allergic/Immunologic ED: Denies mouth swelling, tongue swelling or urticaria EXAM Physical Exam Const Vital Signs: 02/11/21 12:50 02/11/21 13:21 02/11/21 13:22 Temperature 98.7 F Temperature Source Temporal Pulse Rate 116 H 94 Respiratory Rate 18 19 H Respiratory Effort Short of Breath Respiratory Depth Normal Respiratory Pattern Tachypnea Tachypnea Blood Pressure 130/114 H Blood Pressure Mean 119 Pulse Ox 95 Oxygen Delivery Method Room Air 02/11/21 13:28 Temperature Temperature Source Pulse Rate 110 H Respiratory Rate 18 Respiratory Effort Respiratory Depth Respiratory Pattern Normal Blood Pressure Blood Pressure Mean Pulse Ox Oxygen Delivery Method Positive well nourished, well developed and obese General Appearance ED: well developed Nutritional Appearance: obese HEENT Reports normocephalic, head/scalp atraumatic and moist mucous membranes Eyes PERRL and EOMs intact bilaterally Neck no lymphadenopathy, supple and no JVD Resp Resp Narrative: Patient has tachypnea with expiratory wheezing Auscultation: wheezes Cardio regular rate, regular rhythm and no murmurs GI normal to inspection, nondistended, normoactive bowel sounds and non-tender Palpation: soft Back/Spine no CVA tenderness and normal ROM Extremity normal to inspection General Extremety ED: Negative for edema General Extremity: Negative for edema Neuro oriented x3 and CN's II-XII intact bilaterally Sensorium / Orientation: alert Motor Exam: strength 5/5 throughout Psych mental status grossly normal Mood & Affect: Negative for depressed or tearful Skin no rashes or lesions noted and no wounds MDM MDM MDM Narrative Medical decision making narrative: Patient was started on prednisone and given aerosols. Repeat examination shows the patient to be feeling significantly improved. Patient has a nebulizer machine at home but not the tubing and mask. All right for her to have solution and she can take her tubing and mask that she used here. Also place her on a 4 additional day burst of prednisone. Discharge Plan Triage Chief Complaint: Asthma ED Provider: Saúl Clay Dx/Rx/DC Orders Clinical Impression: Acute asthma exacerbation Instructions: ED Asthma, Acute (Adult) Prescriptions: New albuterol sulfate 2.5 MG/3 ML solution for nebulization 2.5 mg inhalation Q4H PRN Qty: 25 RF: 0 prednisone 20 MG tablet 60 mg PO DAILY Qty: 12 RF: 0 No Action norethindrone (contraceptive) 0.35 mg tablet 0.35 mg PO DAILY RF: 0 Primary Care Provider: Inessa Betancourt Referrals: Inessa Betancourt MD [Primary Care Provider] - As Needed Disposition Disposition: Home, Self Care
[2021-02-11] MEDS: Ipratropium/Albuterol Sulfate 3 ML AMPUL.NEB INHALATION (13:16)
[2021-02-11] MEDS: predniSONE 20 MG Tablet 60 MG PO (13:20)
[2021-02-11 13:22] VITALS: PULSE 94; RESP 19
[2021-02-11] MEDS: Albuterol 2.5 MG/3 ML VIAL.NEB. INHALATION ×3 (13:25→13:26)
[2021-02-11 13:28] VITALS: PULSE 110; RESP 18
[2021-02-11 14:23] VITALS: BP 139/99; PULSE 101; RESP 18; O2SAT 96
== END 2021-02-11 14:24 | disposition home or self-care (01) ==
PROVIDERS: Emergency Provider Emergency Medicine; PCP Family Medicine
DX: J45.901 Unspecified asthma with (acute) exacerbation (principal); Z86.16 Personal history of COVID-19
CPT/HCPCS: 94640; 99284

== ENCOUNTER → 2021-04-23 | Outpatient (CLI) | payer BC, SELFPAY | END | disposition home or self-care (01) | PROVIDERS: PCP Family Medicine; Referring Provider Family Medicine; Visit Provider Family Medicine | DX: Z20.822 Contact with and (suspected) exposure to COVID-19 (principal) | CPT/HCPCS: 87635; U0005; U0003 ==

== ENCOUNTER → 2021-06-29 10:35 | Outpatient (CLI) | payer BC, SELFPAY ==
[2021-06-29 12:11] LABS: Absolute Lymphocyte Count 5.96 X10^3/uL (0.83-4.51); Absolute Neutrophil Count 2.7 X10^3/uL (2.0-7.7); Basophil# 0.07 X10^3/uL; Basophil% 0.7 % (0-1); Eosinophil# 0.05 X10^3/uL; Eosinophils% 0.5 % (0-5); Hematocrit 41.3 % (37-47); Hemoglobin 13.5 g/dL (12.0-15.0); Lymphocyte # 5.96 X10^3/ul (0.83-4.51); Lymphocyte % 63.1 % (19-41); Mean Corp Hgb Conc 32.7 g/dL (32-36); Mean Corpuscular Hgb 29.9 pg (27.0-32.0); Mean Corpuscular Volume 91.6 fL (81-99); Mean Platelet Vol. 8.4 fl (6.2-12.0); Monocyte# 0.56 X10^3/uL; Monocyte% 5.9 % (0-10); NRBC Flagged by Analyzer 0 % (0-5); Neutrophil # 2.71 X10^3/uL (2.7-7.7); Neutrophil % 28.8 % (47-70); POSITIVE DIFFERENTIAL YES; POSITIVE MORPHOLOGY YES; Platelet Count 183 K/mm3 (150-450); RBC Distribution Width SD 49.9 fl (35.1-43.9); Red Blood Count 4.51 M/mm3 (4.2-5.4); White Blood Count 9.4 K/mm3 (4.4-11.0)
[2021-06-29 12:29] LABS: Differential Indicated SCAN CRITERIA MET
[2021-06-29 12:54] LABS: ALB/GLOB Ratio 0.6 RATIO (0.9-2.4); AST(SGOT) 54 U/L (15-37); Alanine Aminotransfer ALT/SGPT 71 U/L (13-56); Albumin, Serum 2.8 g/dL (3.2-5.0); Alkaline Phosphatase 134 U/L (45-117); Anion Gap 5 (5-15); BUN 9 mg/dL (7-18); BUN/Creat Ratio 12.8 RATIO (10-20); Calcium,Total 8.8 mg/dL (8.5-10.1); Chloride 109 mmol/L (98-107); EST Glomerular Filtration Rate 102 mL/min (>60); Est Glom Filt Rate - Afr Amer 123 mL/min (>60); Globulin 4.7 g/dL (2.2-4.2); Glucose 99 mg/dL (74-106); Potassium 4.2 mmol/L (3.5-5.1); Protein, Total 7.5 g/dL (6.4-8.2); Sodium Level 139 mmol/L (136-145)
[2021-06-29 13:12] LABS: Atypical Lymphocyte 1+ %; Reactive Lymphocyte 2+
[2021-06-29 13:13] LABS: Platelet Estimate ADEQUATE (ADEQ); Red Cell Morphology NORM C+C NORMAL (NORM C&C)
[2021-06-29 13:34] LABS: Hemoglobin A1c 5.1 % (3.8-5.6)
[2021-07-01 10:09] LABS: Pathologist Review Reviewed
== END ==
PROVIDERS: PCP Family Medicine; Visit Provider Family Medicine
DX: R60.9 Edema, unspecified (principal); E66.01 Morbid (severe) obesity due to excess calories
CPT/HCPCS: 36415; 80053; 83036; 84403; 85025

== ENCOUNTER 2021-07-06 08:38 | Outpatient (CLI) | payer BC, SELFPAY ==
[2021-07-06 10:00] LABS: Glucose 75GTT - 30 minutes 158 mg/dL (100-160)
[2021-07-06 10:06] LABS: Glucose 75GTT - Fasting 127 mg/dL (70-99)
[2021-07-06 10:09] LABS: Cholesterol 154 mg/dL (200); High Density Lipoprotein 31 mg/dL; Triglycerides 179 mg/dL; Very Low Density Lipoprotein 36 mg/dL (5-40)
[2021-07-06 11:22] LABS: Insulin 75GTT - 60 min 166.1 mU/L (Not Estab)
[2021-07-06 11:22] LABS: Glucose 75GTT - 60 minutes 189 mg/dL (100-160)
[2021-07-06 11:23] LABS: Insulin 75GTT - 30 MIN 89.6 mU/L (Not Estab.)
[2021-07-06 11:30] LABS: Glucose 75GTT - 120 minutes 171 mg/dL (70-140)
[2021-07-06 11:36] LABS: Insulin 75GTT - 120 min 253.7 mU/L (Not Estab.)
== END 2021-07-06 23:59 | disposition home or self-care (01) ==
LOC: WOBLAB 08:39
PROVIDERS: PCP Family Medicine; Visit Provider Obstetrics & Gynecology
DX: Z13.29 Encounter for screening for other suspected endocrine disorder (principal); R73.09 Other abnormal glucose
CPT/HCPCS: 36415; 80061; 82951; 82952; 83525

== ENCOUNTER 2021-07-11 10:19 | Outpatient (CLI) | payer BC, SELFPAY ==
[2021-07-11 11:19] LABS: Glucose 113 mg/dL (74-106)
[2021-07-11 11:24] LABS: Hemoglobin A1c 5.1 % (3.8-5.6)
== END 2021-07-11 23:59 | disposition short-term general hospital (02) ==
LOC: LAB 10:20
PROVIDERS: PCP Family Medicine; Referring Provider Obstetrics & Gynecology; Visit Provider Obstetrics & Gynecology
DX: R73.02 Impaired glucose tolerance (oral) (principal)
CPT/HCPCS: 36415; 82947; 83036

== ENCOUNTER → 2022-09-13 | Outpatient (CLI) | payer BC, SELFPAY ==
[2022-09-13 15:21] LABS: Absolute Lymphocyte Count 2.62 X10^3/uL (0.83-4.51); Absolute Neutrophil Count 4.8 X10^3/uL (2.0-7.7); Basophil# 0.12 X10^3/uL; Basophil% 1.5 % (0-1); Eosinophil# 0.14 X10^3/uL; Eosinophils% 1.7 % (0-5); Hematocrit 41.4 % (37-47); Lymphocyte # 2.62 X10^3/ul (0.83-4.51); Lymphocyte % 31.7 % (19-41); Mean Corp Hgb Conc 33.8 g/dL (32-36); Mean Corpuscular Hgb 31.3 pg (27.0-32.0); Mean Corpuscular Volume 92.4 fL (81-99); Mean Platelet Vol. 9.6 fl (6.2-12.0); Monocyte# 0.54 X10^3/uL; Monocyte% 6.5 % (0-10); NRBC Flagged by Analyzer 0 % (0-5); Neutrophil # 4.78 X10^3/uL (2.7-7.7); Neutrophil % 57.9 % (47-70); Platelet Count 239 K/mm3 (150-450); RBC Distribution Width CV 13.1 % (11.6-14.6); RBC Distribution Width SD 43.5 fl (35.1-43.9); Red Blood Count 4.48 M/mm3 (4.2-5.4); White Blood Count 8.3 K/mm3 (4.4-11.0)
[2022-09-13 15:39] LABS: Erythrocyte Sedimentation Rate 25 mm/hr (0-30)
[2022-09-13 15:44] LABS: ALB/GLOB Ratio 0.8 RATIO (0.9-2.4); AST(SGOT) 32 U/L (15-37); Alanine Aminotransfer ALT/SGPT 51 U/L (13-56); Albumin, Serum 3.4 g/dL (3.2-5.0); Alkaline Phosphatase 122 U/L (45-117); Anion Gap 6 (5-15); BUN 10 mg/dL (7-18); BUN/Creat Ratio 11.9 RATIO (10-20); Chloride 107 mmol/L (98-107); Creatinine, Serum 0.84 mg/dL (0.55-1.02); EST Glomerular Filtration Rate 82 mL/min (>60); Est Glom Filt Rate - Afr Amer 99 mL/min (>60); Globulin 4.1 g/dL (2.2-4.2); Glucose 102 mg/dL (74-106); Potassium 3.6 mmol/L (3.5-5.1); Protein, Total 7.5 g/dL (6.4-8.2); Sodium Level 140 mmol/L (136-145)
== END | disposition home or self-care (01) ==
LOC: MFPLAB 12:36
PROVIDERS: PCP Family Medicine; Visit Provider Family Medicine
DX: R53.81 Other malaise (principal)
CPT/HCPCS: 36415; 80053; 84443; 85025; 85652

== ENCOUNTER → 2022-09-22 | Outpatient (CLI) | payer BC, SELFPAY ==
[2022-09-27 14:31] LABS: HPV APTIMA, High Risk Negative (Negative)
== END | disposition home or self-care (01) ==
LOC: LABSPEC 10:12
PROVIDERS: PCP Family Medicine; Visit Provider Student in an Organized Health Care Education/Training Program
DX: Z12.4 Encounter for screening for malignant neoplasm of cervix (principal)
CPT/HCPCS: 87624; 88175; G0145

== ENCOUNTER → 2024-04-30 | Outpatient (CLI) | payer BC, SELFPAY ==
--- NOTE | 2024-04-30 13:43 | RAD_ITS ---
EXAM: XR CHEST, 2 VIEWS CLINICAL INDICATION: cough TECHNIQUE: Frontal and lateral views of the chest. COMPARISON: 04/23/2016. FINDINGS: LUNGS AND PLEURAL SPACES: Unremarkable. No consolidation or edema. No pneumothorax. No effusion. HEART: Unremarkable. Cardiac silhouette not enlarged. MEDIASTINUM: Central airways and mediastinal contour are unremarkable. BONES/JOINTS: Unremarkable. No acute fracture. SOFT TISSUES: Unremarkable. RAD/Chest PA and Lateral IMPRESSION: No radiographic evidence of acute cardiopulmonary disease and unchanged. Electronically Signed: Jonathan Evangelista MD at 13:59 EDT ,
== END | disposition home or self-care (01) ==
LOC: MTRAD 13:43
PROVIDERS: PCP Family Medicine; Referring Provider Physician Assistant; Visit Provider Physician Assistant
DX: R05.9 Cough, unspecified (principal)
CPT/HCPCS: 71046